=== PATIENT | male | born 1965 | race Caucasian/White ===

== ENCOUNTER 2017-04-18 03:04 | Observation (INO) ==
[2017-04-18 03:27] LABS: Bilirubin,Urine Negative (Negative); Blood,Urine Negative (Negative); Clarity,Urine Clear (Clear); Color,Urine Yellow (Yellow); Glucose,Urine (UA) Normal (Normal); Ketones,Urine Negative (Negative); Leukocyte Esterase,Urine Negative (Negative); Nitrite,Urine Negative (Negative); PH,Urine 5.5 pH Units (5.0-8.0); Protein,Urine Negative (Neg-Trace); Specific Gravity,Urine > 1.030 (1.010-1.025); Urobilinogen,Urine Normal (Normal)
[2017-04-18] MEDS ORDERED: Ondansetron ODT 4 MG TAB.RAPDIS SL ONE (04:13)
[2017-04-18] MEDS ORDERED: 0.9 % Sodium Chloride 1,000 ML IVC ONE ×2 (04:28→04:58)
[2017-04-18 04:44] LABS: Basophils # 0.1 K/mcL (0.0-0.2); Basophils % 0.4 %; Eosinophils # 0.1 K/mcL (0.0-0.6); Hematocrit 46.6 % (37.5-50.1); Hemoglobin 16.2 g/dL (12.9-16.9); Immature Granulocytes % 0.5 % (0-4); Lymphocytes # 1.8 K/mcL (0.6-4.6); Lymphocytes % 14.5 %; Mean Corpuscular HGB Conc 34.8 g/dL (31.6-35.5); Mean Corpuscular Hemoglobin 30.1 pg (28.0-33.3); Mean Corpuscular Volume 86.5 fL (83.0-100.0); Mean Platelet Volume 8.9 fL (9.4-12.4); Monocytes # 0.7 K/mcL (0.0-1.3); Monocytes % 5.6 %; Neutrophils # 9.8 K/mcL (1.6-8.9); Platelet Count 303 K/mcL (140-400); Red Blood Count 5.39 M/mcL (4.19-5.50); Red Cell Distribution Width 13.3 % (11.5-14.5)
[2017-04-18 05:00] LABS: Alanine Aminotransferase 15 Units/L (0-55); Albumin 3.8 g/dL (3.5-5.0); Albumin/Globulin Ratio 1.1 (1.1-2.2); Alkaline Phosphatase 80 Units/L (38-126); Aspartate Amino Transferase 16 Units/L (5-34); BUN/Creatinine Ratio 13 (6-26); Bilirubin,Direct 0.3 mg/dL (0.0-0.5); Bilirubin,Indirect 0.1 mg/dL (0.0-1.2); Bilirubin,Total 0.4 mg/dL (0.2-1.2); Blood Urea Nitrogen 15 mg/dL (8-26); Calcium 9.6 mg/dL (8.6-10.8); Carbon Dioxide 23 mEq/L (19-29); Chloride 105 mEq/L (98-109); Globulin 3.6 g/dL (2.4-3.5); Glucose 116 mg/dL (70-99); Lipase 39 Units/L (8-78); Osmolality,Calculated 288 (280-300); Potassium 3.2 mEq/L (3.5-4.5); Sodium 138 mEq/L (136-145); Total Protein 7.4 g/dL (6.0-8.3); eGFR For African Americans > 60 (> 60); eGFR For Non-African Americans > 60 (> 60)
--- NOTE | 2017-04-18 05:32 | Emergency Department Note ---
Disposition Clinical Impression: Pancreatitis Qualifiers: Chronicity: acute Pancreatitis type: unspecified pancreatitis type Acute pancreatitis complication: no infection or necrosis Qualified Code(s): K85.90 - Acute pancreatitis without necrosis or infection, unspecified Disposition: Admitted As Inpatient Condition: Good Time of Disposition: 07:18 Abdominal Pain HPI - General Chief Complaint: ED Abdominal Pain Stated Complaint: abdominal pain Time Seen by Provider: 04/18/17 03:45 Source: patient Mode of arrival: ambulatory Limitations: no limitations Nursing Notes Reviewed: Yes Vital Signs Reviewed: Yes - History of Present Illness HPI Narrative: 51-year-old male history of hypertension presents to the ED for abdominal pain. This is been intermittent over the past month or so. It has gradually gotten worse and became more frequent as well as changed location. States initially it was a cramping sensation located in the epigastric and left abdomen symptoms worsened with foods more particularly spicy foods. It gradually improved but then over the past week it has become more diffuse and has been more consistent over the right upper quadrant. Patient has developed some nausea with emesis after meals. He denies any fevers or chills. He does drink alcohol roughly 6 to 8 beers a week has not recently due to symptoms. History of a appendectomy. Denies any bloody stool, black tarry stools or urinary symptoms. Denies any recent travel, hospitalization or medication changes. He does not have a primary care physician established at this time. Pain Scale: 5 - Related Data Home Medications Medication Instructions Recorded Confirmed Acetaminophen [Tylenol] 1,000 mg PO Q6HR PRN 04/18/17 04/18/17 Bisacodyl [Dulcolax] 5 mg PO DAILY PRN 04/18/17 04/18/17 Lisinopril/Hydrochlorothiazide 2 tab PO DAILY 04/18/17 04/18/17 [Zestoretic 10-12.5 mg Tablet] Pantoprazole Sodium [Protonix] 40 mg PO DAILY 04/18/17 04/18/17 Allergies Allergy/AdvReac Type Severity Reaction Status Date / Time No Known Allergies Allergy Verified 04/18/17 03:08 All systems ED: reviewed and negative except as stated. Constitutional: Denies: fever, chills Cardiovascular: Denies: chest pain Respiratory: Denies: cough, dyspnea Gastrointestinal: Reports: abdominal pain, nausea, vomiting. Denies: diarrhea, melena, hematochezia Genitourinary: Denies: urgency, dysuria, frequency Musculoskeletal: Denies: back pain, neck pain Abdominal Pain PMH - Past Medical History Medical history: Reports: hypertension, kidney stones Male Surgical History: Reports: appendectomy, herniorrhaphy - Social History Smoking status: Current every day smoker Alcohol use: Reports: occasionally Drug use: Reports: marijuana Physical Exam - General Limitations: no limitations General appearance: alert, in no apparent distress - Head Head exam: atraumatic, normocephalic, normal inspection - Eye Eye exam: Present: normal appearance, PERRL, EOMI - ENT ENT exam: normal exam, normal oropharynx, mucous membranes dry (Chapped lips) - Neck Neck exam: Present: normal inspection, full ROM, trachea midline - Chest Chest inspection: Present: normal inspection, symmetric chest wall rise - Respiratory Respiratory exam: Present: normal lung sounds bilaterally - Cardiovascular Cardiovascular exam: Present: regular rate, normal rhythm, normal heart sounds - Abdominal Exam Abdominal exam: Present: soft, tenderness, normal bowel sounds, Anthony's sign, scar (Right lower quadrant). Absent: distention, guarding, rebound, rigidity, tenderness at McBurney's Point Abdominal tenderness: Present: RUQ, LUQ, epigastrium, diffuse, mild - Extremities Exam Extremities exam: Present: normal inspection, full ROM, normal capillary refill. Absent: tenderness, pedal edema, calf tenderness - Back Exam Back exam: Present: normal inspection, full ROM. Absent: tenderness, CVA tenderness (R), CVA tenderness (L) - Neurological Exam Neurological exam: Present: alert, oriented X3 - Psychiatric Psychiatric exam: Present: normal affect, normal mood - Skin Skin exam: Present: warm, dry, intact, normal color Course Course Narrative: 51-year-old male presents with abdominal pain. Intermittent over the past month. Pain is now more diffuse mostly located in the epigastric and right upper quadrant. Abdomen is otherwise soft and nondistended. Oral mucosal membranes appear dry. CT of the abdomen and pelvis reveals acute pancreatitis. Lipase however is surprisingly normal. Clinically he appears to be pancreatitis. While give him IV fluids morphine to control pain. Patient will be admitted. Review of labs or otherwise unremarkable. Impression is pancreatitis. - Reevaluation(s) Reevaluation #1: Patient's blood pressure is elevated. He typically takes his blood pressure medication in the morning. He denies any chest pain at this time. - Consultations Consultation #1: Spoke with on-call hospitalist yariel Ibarra to admit for abdominal pain and acute pancreatitis. No further orders at this time Time: 07:19 Vital Signs Temperature 97.6 F 04/18/17 03:05 Pulse Rate 91 04/18/17 03:05 Respiratory Rate 18 04/18/17 03:05 Blood Pressure 195/118 04/18/17 03:05 O2 Sat by Pulse Oximetry 96 04/18/17 03:05 Temperature 97.9 F 04/18/17 11:12 Pulse Rate 72 04/18/17 11:12 Respiratory Rate 15 04/18/17 11:12 Blood Pressure 161/84 04/18/17 11:12 O2 Sat by Pulse Oximetry 96 04/18/17 11:12 Oxygen Delivery Oxygen Delivery Room Air Abdominal Pain - Medical Records Medical records reviewed: Yes I reviewed the patient's medical records. - Lab Data Lab results reviewed: Yes I reviewed the patient's lab results. Result diagrams: 04/18/17 04:20 04/18/17 04:20 Lab Results 04/18/17 04/18/17 04/18/17 Range/Units 03:13 04:20 04:20 WBC 12.6 H (4.3-11.1) K/mcL RBC 5.39 (4.19-5.50) M/mcL Hgb 16.2 (12.9-16.9) g/dL Hct 46.6 (37.5-50.1) % MCV 86.5 (83.0-100.0) fL MCH 30.1 (28.0-33.3) pg MCHC 34.8 (31.6-35.5) g/dL RDW 13.3 (11.5-14.5) % Plt Count 303 (140-400) K/mcL MPV 8.9 L (9.4-12.4) fL Immature Gran % 0.5 (0-4) % Seg Neutrophils % 78.0 % Lymphocytes % 14.5 % Monocytes % 5.6 % Eosinophils % 1.0 % Basophils % 0.4 % Neutrophils # 9.8 H (1.6-8.9) K/mcL Lymphocytes # 1.8 (0.6-4.6) K/mcL Monocytes # 0.7 (0.0-1.3) K/mcL Eosinophils # 0.1 (0.0-0.6) K/mcL Basophils # 0.1 (0.0-0.2) K/mcL Sodium 138 (136-145) mEq/L Potassium 3.2 L (3.5-4.5) mEq/L Chloride 105 (98-109) mEq/L Carbon Dioxide 23 (19-29) mEq/L BUN 15 (8-26) mg/dL Creatinine 1.15 (0.72-1.25) mg/dL Est GFR ( Amer) > 60 (> 60) Est GFR (Non-Af Amer) > 60 (> 60) BUN/Creatinine Ratio 13 (6-26) Glucose 116 H (70-99) mg/dL Calculated Osmolality 288 (280-300) Calcium 9.6 (8.6-10.8) mg/dL Total Bilirubin 0.4 (0.2-1.2) mg/dL Direct Bilirubin 0.3 (0.0-0.5) mg/dL Indirect Bilirubin 0.1 (0.0-1.2) mg/dL AST 16 (5-34) Units/L ALT 15 (0-55) Units/L Alkaline Phosphatase 80 (38-126) Units/L Serum Total Protein 7.4 (6.0-8.3) g/dL Albumin 3.8 (3.5-5.0) g/dL Globulin 3.6 H (2.4-3.5) g/dL Albumin/Globulin Ratio 1.1 (1.1-2.2) Triglycerides 207 H (< 150) mg/dL Cholesterol 244 H (< 200) mg/dL LDL Cholesterol, Calc 160 H (0-99) mg/dL VLDL Cholesterol, Calc 41 H (< 31) mg/dL HDL Cholesterol 43 (40-59) mg/dL Cholesterol/HDL Ratio 5.7 H (0-4.9) Lipase 39 (8-78) Units/L Urine Color Yellow (Yellow) Urine Clarity Clear (Clear) Urine pH 5.5 (5.0-8.0) pH Units Ur Specific Holloway > 1.030 H (1.010-1.025) Urine Protein Negative (Neg-Trace) mg/dL Urine Glucose (UA) Normal (Normal) mg/dL Urine Ketones Negative (Negative) mg/dL Urine Blood Negative (Negative) Urine Nitrite Negative (Negative) Urine Bilirubin Negative (Negative) Urine Urobilinogen Normal (Normal) mg/dL Ur Leukocyte Esterase Negative (Negative) - Radiology Data Radiology results reviewed: Yes I reviewed the patient's radiology results. Abdomen/Pelvis CT 04/18/17 04:14 IMPRESSION: Acute pancreatitis. D/ / Leon Carlos MD / Leon Carlos MD Interpreting Provider: Leon Carlos MD Attestation Statement - Attestation Attestation: I personally interviewed and examined this patient and my medical decision- making was reviewed with the ED Resident Physician, Dr. Reza I agree with the documented findings, disposition and treatment plan as described except to the extent set forth below. Pt is a 51 yo wm, hx HTN, who presents with grad worsening one month hx of intermittent upper abd pain. Pt c/o incr pain over past 5 days with pain mostly epigastric in nature, nonrad, and with N/V. Pt with ETOH use, but none in past week due to abd pain. No CP/press, no SOB, no diaphoresis, no other assocd sxs. Agree with PE findigns as documented. Pt cont monitored, with improvement in BP with pain control. Pt receiving IVF's , and labs wnl. CT shows evidence of acute pancreatitis, with normal lipase?? Clinically sxs appear c/w pancreatitis. Will continue IVF, pain control and admit for further eval/mgmt. VSS.
[2017-04-18] MEDS ORDERED: *HR* Morphine 2 MG/ML SYRINGE IVP ONE (05:40)
[2017-04-18] MEDS ORDERED: Ondansetron 4 MG/2 ML VIAL IVP ONE (05:40)
[2017-04-18] MEDS ORDERED: Ondansetron 4 MG/2 ML VIAL IVP PRN (09:38)
[2017-04-18] MEDS ORDERED: *HR* Morphine 2 MG/ML SYRINGE IVP PRN (09:38)
[2017-04-18] MEDS ORDERED: Naloxone 0.4 MG/ML INJ IVP PRN (09:38)
[2017-04-18] MEDS ORDERED: Nicotine 21 MG PATCH.TD24 TD SCH (09:45)
[2017-04-18 10:15] LABS: Chol/HDL Ratio 5.7 (0-4.9); Cholesterol 244 mg/dL (< 200); HDL Cholesterol 43 mg/dL (40-59); LDL Cholesterol,Calculated 160 mg/dL (0-99); Triglycerides 207 mg/dL (< 150)
[2017-04-18] MEDS: D5% in 0.45% NACL 1,000 ML IVC SCH (10:16)
--- NOTE | 2017-04-18 11:06 | Internal Med History&Physical ---
Date of Encounter: 04/18/17 Time of Encounter: 09:30 Assessment and Plan (1) Pancreatitis Current visit: Yes Status: Acute CT abdomen/pelvis done in the emergency room shows changes suggestive of acute pancreatitis. Given his 2 month history of ongoing abdominal pain, will get right upper quadrant ultrasound to rule out gallstone issues. Check lipid profile. Keep nothing by mouth for now. IV PPI. Start IV hydration, pain control with when necessary IV morphine and supportive care with when necessary antiemetics. Alcohol abstinence discussed. Qualifiers: Chronicity: acute Pancreatitis type: unspecified pancreatitis type Acute pancreatitis complication: no infection or necrosis Qualified Code(s): K85.90 - Acute pancreatitis without necrosis or infection, unspecified (2) Essential hypertension Current visit: Yes Status: Chronic Blood pressure noted to be high at triage, likely worsened by pain. Continue lisinopril and monitor blood pressure closely. (3) Tobacco abuse Current visit: Yes Status: Chronic Patient requests for nicotine transdermal patch, not motivated to quit smoking at this time. Internal Medicine - H&P: HPI Chief complaint: Abdominal pain Admitted From: Emergency Dept Plans for Post Hospital Care: Home History of present illness: Mr. Santo is a 51 year old male with history of hypertension presents with complaints of abdominal pain, going on for the last 2 months. Patient describes a dull aching mild to moderate intensity abdominal pain, that is usually diffuse and sometimes specifically epigastric, radiating to left upper quadrant. Pain is associated with nausea, nonbloody and bilious vomiting, no diarrhea, fever/chills. Pain is aggravated with certain kinds of foods like spicy and greasy foods. He reports no known h/o- gallstones. He does drink alcohol, about 6-8 beers per week. Last drink was about a week ago. Past Med Surg Social Fam HX - Past Medical History Medical history: hypertension, kidney stones Psychiatric history: anxiety, depression - Past Surgical History Surgical History: appendectomy, herniorrhaphy - Social History Smoking Status: Current every day smoker Packs per day: 1 Smokeless Tobacco Status: Yes (occasionally) Alcohol use: occasionally Drug use: marijuana Current living situation: Home, With Family Activity Level: Independent ambulation Recent Out of Country Travel Within the Last 8 Weeks: No - Family History Mother Living Status: Age at : 69 Cause of : pneumonia Hx Family Cardiac Disorders: Yes (htn) Hx Family Medical Disorders: Yes (morbid obesity, reumatic fever) Father Living Status: Age at : 64 Cause of : diabetes complications Hx Family Cardiac Disorders: Yes (MIs, CHF) Hx Family Endocrine Disorder: Yes (dm) Hx Family Neurologic Disorders: Yes (stroke) Internal Medicine - H&P: Meds Acetaminophen [Tylenol] 1,000 mg PO Q6HR PRN 04/18/17 [History] Bisacodyl [Dulcolax] 5 mg PO DAILY PRN 04/18/17 [History] Lisinopril/Hydrochlorothiazide [Zestoretic 10-12.5 mg Tablet] 2 tab PO DAILY 08/25 [History] Pantoprazole Sodium [Protonix] 40 mg PO DAILY 04/18/17 [History] Allergies No Known Allergies Allergy (Verified 04/18/17 03:08) All Systems PM: A 10-system review of systems was performed and is negative for pertinent findings except as documented above in the HPI. - Constitutional Constitutional: no chills, no fever(s), no night sweats - EENT Eyes: no change in vision, no discharge, no pain, no photophobia Ears: no ear discharge, no ear pain, no tinnitus Nose, mouth and throat: no dysphagia, no nasal discharge, no neck pain, no sore throat - Cardiovascular Cardiovascular ROS IM: no chest pain, no diaphoresis, no dyspnea, no lightheadedness, no palpitations, no syncope - Respiratory Respiratory: no cough, no dyspnea, no wheezing, no excessive phlegm production - Gastrointestinal Gastrointestinal: abdominal pain, nausea, vomiting - Musculoskeletal Musculoskeletal ROS IM: no numbness, no tingling - Integumentary Integumentary IM: no rash, no unusual bruising - Neurological Neurological ROS: no confusion, no convulsions, no focal weakness, no numbness, no tingling, no tremor(s) - Hematologic/Lymphatic Hematologic/Lymphatic: no easy bruising - Constitutional Vitals: Temp Pulse Resp BP Pulse Ox 97.6 F 48 16 156/78 94 04/18/17 07:51 04/18/17 07:51 04/18/17 07:51 04/18/17 07:51 04/18/17 09:15 General appearance: Present: A&O X 3, answers questions appropriately - Respiratory Respiratory exam: Present: CTAB. Absent: accessory muscle use, rales, rhonchi, wheezes - Cardiovascular Cardiovascular exam: Present: RRR, +S1, +S2. Absent: diastolic murmur, gallop, rubs, systolic murmur - GI/Abdominal GI/Abdominal exam: Present: normal bowel sounds, soft (mild tenderness in epigastrium/LUQ), no peritoneal signs. Absent: distended, tenderness - Extremities Exam Extremities exam: Present: full ROM, warm, radial pulses palpable and symetrical. Absent: calf tenderness, cyanotic, pedal edema - Neurological Exam Neurological exam: Present: CN II-XII intact, oriented X3, no focal deficits. Absent: pronater drift, facial droop, speech deficit - Skin Skin exam: Present: dry, intact Internal Med - H&P Results - Labs CBC & Chem 7: 04/18/17 04:20 04/18/17 04:20
[2017-04-18] MEDS: *HR* Heparin 5,000 UNIT/ML VIAL SQ SCH (18:05)
[2017-04-18] MEDS: Acetaminophen 325 MG TABLET PO PRN (20:58)
[2017-04-19] MEDS: D5% in 0.45% NACL 1,000 ML IVC SCH (01:31)
[2017-04-19 03:31] VITALS: BP 132/74
[2017-04-19 04:52] LABS: Basophils # 0.1 K/mcL (0.0-0.2); Basophils % 0.9 %; Eosinophils # 0.2 K/mcL (0.0-0.6); Eosinophils % 2.6 %; Hematocrit 43.2 % (37.5-50.1); Immature Granulocytes % 0.3 % (0-4); Lymphocytes # 2.1 K/mcL (0.6-4.6); Lymphocytes % 29.3 %; Mean Corpuscular HGB Conc 33.8 g/dL (31.6-35.5); Mean Corpuscular Hemoglobin 29.6 pg (28.0-33.3); Mean Corpuscular Volume 87.4 fL (83.0-100.0); Mean Platelet Volume 9.1 fL (9.4-12.4); Monocytes # 0.4 K/mcL (0.0-1.3); Monocytes % 5.1 %; Neutrophils # 4.3 K/mcL (1.6-8.9); Platelet Count 261 K/mcL (140-400); Red Blood Count 4.94 M/mcL (4.19-5.50); Red Cell Distribution Width 13.2 % (11.5-14.5); Segmented Neutrophils % 61.8 %
[2017-04-19 04:59] LABS: Hemoglobin 14.6 g/dL (12.9-16.9)
[2017-04-19 05:09] LABS: Alanine Aminotransferase 13 Units/L (0-55); Albumin 3.1 g/dL (3.5-5.0); Alkaline Phosphatase 73 Units/L (38-126); Aspartate Amino Transferase 13 Units/L (5-34); BUN/Creatinine Ratio 7 (6-26); Bilirubin,Total 0.6 mg/dL (0.2-1.2); Blood Urea Nitrogen 7 mg/dL (8-26); Calcium 9.1 mg/dL (8.6-10.8); Carbon Dioxide 27 mEq/L (19-29); Chloride 107 mEq/L (98-109); Globulin 3.2 g/dL (2.4-3.5); Glucose 107 mg/dL (70-99); Osmolality,Calculated 286 (280-300); Potassium 3.5 mEq/L (3.5-4.5); Sodium 139 mEq/L (136-145); Total Protein 6.3 g/dL (6.0-8.3); eGFR For African Americans > 60 (> 60); eGFR For Non-African Americans > 60 (> 60)
[2017-04-19] MEDS: *HR* Heparin 5,000 UNIT/ML VIAL SQ SCH (05:52)
[2017-04-19] MEDS: Acetaminophen 325 MG TABLET PO PRN (06:48)
--- NOTE | 2017-04-19 08:18 | Discharge Summary ---
Date of Encounter: 04/19/17 Time of Encounter: 08:15 - Discharge Diagnosis (1) Pancreatitis Priority: Primary Status: Acute Comments: Acute pancreatitis, unclear etiology Qualifiers: Chronicity: acute Pancreatitis type: unspecified pancreatitis type Acute pancreatitis complication: no infection or necrosis Qualified Code(s): K85.90 - Acute pancreatitis without necrosis or infection, unspecified (2) Hypokalemia Priority: Secondary Status: Acute (3) Essential hypertension Priority: Secondary Status: Chronic (4) Tobacco abuse Priority: Secondary Status: Chronic (5) Leukocytosis Priority: Secondary Status: Acute Qualifiers: Leukocytosis type: unspecified Qualified Code(s): D72.829 - Elevated white blood cell count, unspecified - Discharge Medications Prescriptions: amLODIPine [Norvasc] 5 mg PO DAILY #30 tablet Losartan [Cozaar] 25 mg PO DAILY #30 tablet Home Medications: Acetaminophen [Tylenol] 1,000 mg PO Q6HR PRN 04/18/17 [History] Bisacodyl [Dulcolax] 5 mg PO DAILY PRN 04/18/17 [History] Pantoprazole Sodium [Protonix] 40 mg PO DAILY 04/18/17 [History] Losartan [Cozaar] 25 mg PO DAILY #30 tablet 04/19/17 [Rx] amLODIPine [Norvasc] 5 mg PO DAILY #30 tablet 04/19/17 [Rx] Allergies/Adverse Reactions: Allergies No Known Allergies Allergy (Verified 04/18/17 03:08) Procedures/tests Complete & Pending: Procedures Performed prior 72 hours Category Date Time Status US abdomen limited [US] Stat Exams 04/18/17 13:00 Completed Date of admission: 04/18/17 06:57 Primary care physician: PCP NO Consults: 04/18/17 09:13 Consult to Nutrition [CONS] Routine Comment: pt scored a 3, reports a 20lb weight loss recently Consulting Provider: NUTRITION Reason for Dietary Consult: MST Score - Patient Status Disposition: Home, Self-Care Condition: Good Overall status at discharge: patient is back to baseline - Discharge Instructions Instructions: Pancreatitis (DC) Follow Up With: Emeka Ponce MD [Non-Partnered Physician] - 05/23/17 1:30 pm (Please bring a photo ID, insurance card and a list of any medications you are on. If you need to cancel please give a 24 hour notice. Thank you) Additional Instructions: Follow-up with the primary care physician within the next 7 days. Quit smoking , quit drinking alcohol. Stop lisinopril and hydrochlorothiazide, start losartan and amlodipine (prescription sent to [facility] in [place]). Low fat and low lactose diet. Discusse with primary care physician the possibility of having an MRI if the symptoms do not improve after stopping alcohol, lisinopril and hydrochlorothiazide. - Diet and Activity Activity: increase activity as tolerated Diet: low fat, low cholesterol Hospital course: Mr. Santo is a 51 year old male with history of hypertension and nephrolithiasis presented with complaints of abdominal pain, going on for the last 2 months ( started on and off 18 months ago). Patient describes a dull aching mild to moderate intensity abdominal pain, that is usually diffuse and sometimes specifically epigastric, radiating to left upper quadrant. Pain is associated with nausea, nonbloody and bilious vomiting, no diarrhea, fever/ chills. Pain is aggravated with certain kinds of foods like spicy and greasy foods. He reports no known h/o- gallstones. He does drink alcohol, about 6-8 beers per week. Last drink was about a week ago. The patient denies drinking lately, the CT scan of the abdomen showed acute pancreatitis. His lipase was 39 only. Patient says is still complaining of epigastric tenderness. An ultrasound of the abdomen did not show any gallstones or other abnormalities. He says he does not think alcohol has been the culprit of his pain, but he does not drink that often. Due to his normal lipase the patient was recommended to have an MRI to rule out the possibility of a mass. Patient prefers to be discharged at this point and have it done if the pain does not get better after stop drinking and after stopping lisinopril and hydrochlorothiazide which can rarely cause pancreatitis. He prefers to be sent on a different type of medication for blood pressure and will be sent on losartan and amlodipine. He was advised to stay another day if the pain was not properly controlled. He will be discharged after breakfast. He understands the risk of not having proper testing, but he is worried about not having insurance and prefers to leave at the moment. Earlier today he threatened to leave AGAINST MEDICAL ADVICE. Time spent discussing smoking cessation with patient: 3 to 10 minutes - Time Spent with Patient Total time spent providing and/or coordinating discharge services: Greater than 30 minutes (40 min) - Constitutional Vitals: Temp Pulse Resp BP Pulse Ox 97.7 F 53 15 132/74 94 04/19/17 03:27 04/19/17 03:27 04/19/17 03:27 04/19/17 03:27 04/19/17 03:27 General appearance: Present: A&O X 3, answers questions appropriately - Head Head exam: Present: atraumatic, normocephalic - Eye Eye exam: Present: PERRL, conjuntiva pink, sclera anicteric Pupils: Present: PERRL - Neck Neck exam general surgery: Present: supple, trachea midline. Absent: lymphadenopathy - Respiratory Respiratory exam: Present: CTAB. Absent: accessory muscle use, rales, rhonchi, wheezes - Cardiovascular Cardiovascular exam: Present: RRR, +S1, +S2. Absent: diastolic murmur, gallop, rubs, systolic murmur - GI/Abdominal GI/Abdominal exam: Present: normal bowel sounds, soft, tenderness (Mild epigastric tenderness), no peritoneal signs. Absent: distended - Extremities Exam Extremities exam: Present: warm, radial pulses palpable and symetrical. Absent : calf tenderness, cyanotic, pedal edema - Neurological Exam Neurological exam: Present: CN II-XII intact, oriented X3, no focal deficits. Absent: pronater drift, facial droop, speech deficit - Skin Skin exam: Present: dry, intact
[2017-04-19] MEDS ORDERED: Pantoprazole 40 MG VIAL IVP SCH (09:00)
== END 2017-04-19 08:56 | disposition home or self-care (01) ==
LOC: 3ANU 03:04 → EMEROO 03:04 → SUATTDRO 06:57 → 3ANU 07:33
PROVIDERS: ADMIT Internal Medicine; ATTEND Internal Medicine

== ENCOUNTER 2018-12-25 02:18 | Inpatient (IN) ==
--- NOTE | 2018-12-25 04:28 | Emergency Department Note ---
Disposition Clinical Impression: Elevated troponin, Hypoxia, Pneumonitis, NSTEMI (non-ST elevated myocardial infarction) Disposition: Admitted As Inpatient Condition: Good Time of Disposition: 06:12 SOB HPI - General Chief Complaint: ED Shortness of Breath/Dyspnea Stated Complaint: Cant breath. Time Seen by Provider: 12/25/18 04:10 Source: patient Limitations: no limitations Nursing Notes Reviewed: Yes Vital Signs Reviewed: Yes - History of Present Illness 53-year-old male with history of tobacco abuse, hypertension and hyperlipidemia presents emergency department was shortness of breath. States he can breathe today. This occurred suddenly. He states over the past month he has been very stressed and anxious as his current job is being eliminated. He denied any chest pain during this time. Denies any recent illness cough or congestion. He smokes in denies a history of asthma or COPD. Denies history of blood clots, long-distance travel, hospitalization. 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 States his feels significantly better when he was evaluated 2 hours into his weight. He has found to be tachycardic which has improved down to 99 with oxygen saturation 92%. Pt Subjective Complaint: shortness of breath - Related Data Home Medications Medication Instructions Recorded Confirmed RX: No Known Home Drugs 12/25/18 12/25/18 Allergies Allergy/AdvReac Type Severity Reaction Status Date / Time No Known Allergies Allergy Verified 12/25/18 19:09 All systems ED: reviewed and negative except as stated. Review of Systems: As Per HPI Constitutional: Denies: fever, chills ENT ED: Denies: congestion Cardiovascular: Denies: chest pain Respiratory: Reports: dyspnea. Denies: cough, wheezes, hemoptysis Gastrointestinal: Denies: abdominal pain, nausea, vomiting Musculoskeletal: Denies: back pain Integumentary: Denies: rash Neurological: Denies: headache Psychiatric: Reports: anxiety. Denies: depression, suicidal thoughts, homicidal thoughts Past Medical History - Past Medical History Attestation: Yes The following information was validated with the patient. Source: patient Medical history: Reports: cancer, hypertension, kidney stones Surgical history: Reports: appendectomy, herniorrhaphy Psychiatric history: Reports: anxiety, depression - Social History Smoking Status: Current every day smoker Smokeless Tobacco Status: Yes (occasionally) Alcohol use: Reports: occasionally Drug use: Reports: marijuana Physical Exam - General Limitations: no limitations General appearance: alert, anxious - Head Head exam: atraumatic, normocephalic, normal inspection - Eye Eye exam: Present: normal appearance, PERRL, EOMI - ENT ENT exam: normal exam, normal oropharynx, mucous membranes moist - Neck Neck exam: Present: normal inspection, full ROM, trachea midline - Chest Chest inspection: Present: normal inspection, symmetric chest wall rise - Respiratory Respiratory exam: Present: normal lung sounds bilaterally. Absent: respiratory distress, wheezes, prolonged expiratory phase - Cardiovascular Cardiovascular exam: Present: normal rhythm, tachycardia, normal heart sounds. Absent: systolic murmur, diastolic murmur - Expanded Cardiovascular Exam Peripheral pulses: 2+: radial (R), radial (L) - Abdominal Exam Abdominal exam: Present: soft, Non-Tender, normal bowel sounds. Absent: tenderness, distention, guarding, rebound, rigidity - Extremities Exam Extremities exam: Present: normal inspection, full ROM, normal capillary refill. Absent: tenderness, pedal edema, calf tenderness - Neurological Exam Neurological exam: Present: alert, oriented X3 - Psychiatric Psychiatric exam: Present: anxious. Absent: depressed - Skin Skin exam: Present: warm, dry, intact, normal color. Absent: rash, cyanosis, diaphoresis Course Course Narrative: Will evaluate for possible ACS. Given the persistent tachycardia and 92% on room air without any wheezing and clear lungs auscultation will check a D dimer. Reports a history of skin cancer with removal. - Reevaluation(s) Reevaluation #1: D dimer is elevated over 1000. He continues to be mildly tachycardic and 92% on room air. Critical lab values troponin 0.07. He denies any chest pain. His BNP is over 700. He has a mild leukocytosis. Chest x-ray with concerns for possible pneumonia. CT scan to evaluate PE pending to evaluate for possible pulmonary embolism into better evaluate infiltrate. Time: 05:15 Reevaluation #2: CT scan of the chest did not reveal pulmonary embolism. There is calcification to the coronary arteries was incidentally found. There is evidence of some pneumonitis in the bases versus bilateral pleural effusion. Given the elevated troponin patient will require admission. Patient denies G.I. bleed symptoms. Patient will be initiated on heparin. Time: 06:05 - Consultations Consultation #1: Spoke with on-call hospitalist yariel Pino to admit for NSTEMI, elevated trop, pneumonitis. No further orders at this time Time: 07:08 Vital Signs Temperature 98.0 F 12/25/18 02:26 Pulse Rate 123 12/25/18 02:26 Respiratory Rate 24 12/25/18 02:26 Blood Pressure 192/124 12/25/18 02:26 O2 Sat by Pulse Oximetry 93 12/25/18 02:26 Temperature 98.0 F 12/25/18 02:26 Pulse Rate 102 12/25/18 06:35 Respiratory Rate 14 12/25/18 06:35 Blood Pressure 157/100 12/25/18 06:35 O2 Sat by Pulse Oximetry 94 12/25/18 06:35 Oxygen Delivery Oxygen Delivery Room Air Shortness of Breath/Dyspnea - MDM Narrative Medical decision making narrative: Patient was discussed with my attending physician who agrees with ED management and final disposition. They independently evaluated the patient. Please refer to their attestation to this encounter for additional information. This note was generated by [email or web address] voice recognition software and as a result g rammatical or spelling errors may occur using this program. - Medical Records Medical records reviewed: Yes I reviewed the patient's medical records. - Lab Data Lab results reviewed: Yes I reviewed the patient's lab results. Result diagrams: 12/26/18 01:53 12/26/18 01:53 Lab Results 12/25/18 12/25/18 12/25/18 Range/Units 04:23 04:23 04:23 WBC 14.2 H (4.3-11.1) K/mcL RBC 5.78 H (4.19-5.50) M/mcL Hgb 17.9 H (12.9-16.9) g/dL Hct 51.5 H (37.5-50.1) % MCV 89.1 (83.0-100.0) fL MCH 31.0 (28.0-33.3) pg MCHC 34.8 (31.6-35.5) g/dL RDW 13.1 (11.5-14.5) % Plt Count 252 (140-400) K/mcL MPV 9.9 (9.4-12.4) fL Immature Gran % 0.5 (0-4) % Seg Neutrophils % 87.1 % Lymphocytes % 7.5 % Monocytes % 4.3 % Eosinophils % 0.2 % Basophils % 0.4 % Neutrophils # 12.4 H (1.6-8.9) K/mcL Lymphocytes # 1.1 (0.6-4.6) K/mcL Monocytes # 0.6 (0.0-1.3) K/mcL Eosinophils # 0.0 (0.0-0.6) K/mcL Basophils # 0.1 (0.0-0.2) K/mcL D-Dimer (0-500) ng/mLFEU Sodium 138 (136-145) mEq/L Potassium 3.5 (3.5-5.1) mEq/L Chloride 108 H (98-107) mEq/L Carbon Dioxide 21 L (23-29) mEq/L BUN 13 (6-20) mg/dL Creatinine 0.97 (0.70-1.30) mg/dL Est GFR ( Amer) > 60 (> 60) Est GFR (Non-Af Amer) > 60 (> 60) BUN/Creatinine Ratio 13 (6-26) Glucose 139 H (70-105) mg/dL Calculated Osmolality 288 (280-300) Calcium 9.3 (8.6-10.3) mg/dL Troponin I 0.07 H* (< 0.04) ng/mL B-Natriuretic Peptide 714 H (Less than 100) pg/mL 12/25/18 Range/Units 04:23 WBC (4.3-11.1) K/mcL RBC (4.19-5.50) M/mcL Hgb (12.9-16.9) g/dL Hct (37.5-50.1) % MCV (83.0-100.0) fL MCH (28.0-33.3) pg MCHC (31.6-35.5) g/dL RDW (11.5-14.5) % Plt Count (140-400) K/mcL MPV (9.4-12.4) fL Immature Gran % (0-4) % Seg Neutrophils % % Lymphocytes % % Monocytes % % Eosinophils % % Basophils % % Neutrophils # (1.6-8.9) K/mcL Lymphocytes # (0.6-4.6) K/mcL Monocytes # (0.0-1.3) K/mcL Eosinophils # (0.0-0.6) K/mcL Basophils # (0.0-0.2) K/mcL D-Dimer 1039 H (0-500) ng/mLFEU Sodium (136-145) mEq/L Potassium (3.5-5.1) mEq/L Chloride (98-107) mEq/L Carbon Dioxide (23-29) mEq/L BUN (6-20) mg/dL Creatinine (0.70-1.30) mg/dL Est GFR ( Amer) (> 60) Est GFR (Non-Af Amer) (> 60) BUN/Creatinine Ratio (6-26) Glucose (70-105) mg/dL Calculated Osmolality (280-300) Calcium (8.6-10.3) mg/dL Troponin I (< 0.04) ng/mL B-Natriuretic Peptide (Less than 100) pg/mL - Radiology Data Radiology results reviewed: Yes I reviewed the patient's radiology results. Chest X-Ray 12/25/18 02:35 IMPRESSION: Mild streaky opacities in the lung bases. Infection versus atelectasis. D/ / Nette Berrios MD / Nette Berrios MD Interpreting Provider: Nette Berrios MD Chest CTA 12/25/18 04:58 IMPRESSION: No pulmonary embolism. Emphysema. Calcific atherosclerosis aorta and coronary arteries. Small volume bilateral pleural effusion with minimal posterior bibasilar atelectasis. Focal pneumonitis is a consideration posterior both lung bases D/ / Nura Jaffe / Nura Jaffe Interpreting Provider: Nura Jaffe - EKG Data EKG attestation: Yes I reviewed and interpreted this EKG. EKG results narrative: EKG performed 0314 sinus tachycardia 104 beats per minute, normal axis, good R wave progression, no ST elevation or depression, LVH, intervals within normal limits. Compared to prior EKG performed 09/10/2014 with similar consistent findings are no acute ischemic changes. Attestation Statement - Attestation Attestation: Resident Attestation: I examined this patient and my medical decision making was reviewed with the Resident Physician. I agree with the documented findings, disposition and treatment plan as described except to the extent set forth below. We independently had [id number] contact with the patient. Patient presenting to the emergency department for evaluation of shortness of breath. Patient was found to be hypoxic. Overall shortness of breath is been going on for the last month. Initially noticed a work with exertional dyspnea. Overall symptoms have gotten to the point that even mild exertion causes significant dyspnea. The patient did undergo evaluation for other underlying causes. CT of the chest performed was found to be negative. Patient did have an elevated troponin as well as BNP. Given the patient's exertional dyspnea with associated elevation of his BNP and no underlying PE or other etiology. Concerning for ACS or ACS equivalent. Patient is resting in bed comfortable with this time, no acute distress, regular rhythm, clear to auscultation bilaterally, no significant peripheral edema. Patient was initiated on heparin drip. Patient be admitted for further evaluation.
[2018-12-25 04:35] LABS: Basophils # 0.1 K/mcL (0.0-0.2); Basophils % 0.4 %; Eosinophils % 0.2 %; Hematocrit 51.5 % (37.5-50.1); Hemoglobin 17.9 g/dL (12.9-16.9); Immature Granulocytes % 0.5 % (0-4); Lymphocytes # 1.1 K/mcL (0.6-4.6); Lymphocytes % 7.5 %; Mean Corpuscular HGB Conc 34.8 g/dL (31.6-35.5); Mean Corpuscular Volume 89.1 fL (83.0-100.0); Mean Platelet Volume 9.9 fL (9.4-12.4); Monocytes # 0.6 K/mcL (0.0-1.3); Monocytes % 4.3 %; Neutrophils # 12.4 K/mcL (1.6-8.9); Platelet Count 252 K/mcL (140-400); Red Blood Count 5.78 M/mcL (4.19-5.50); Red Cell Distribution Width 13.1 % (11.5-14.5); Segmented Neutrophils % 87.1 %
[2018-12-25 04:56] LABS: BUN/Creatinine Ratio 13 (6-26); Blood Urea Nitrogen 13 mg/dL (6-20); Calcium 9.3 mg/dL (8.6-10.3); Carbon Dioxide 21 mEq/L (23-29); Chloride 108 mEq/L (98-107); Glucose 139 mg/dL (70-105); Osmolality,Calculated 288 (280-300); Potassium 3.5 mEq/L (3.5-5.1); Sodium 138 mEq/L (136-145); eGFR For Non-African Americans > 60 (> 60)
[2018-12-25] MEDS ORDERED: Isovue-370 500 ML BOTTLE IVP ONE (04:58)
[2018-12-25 05:13] LABS: Troponin I 0.07 ng/mL (< 0.04)
[2018-12-25] MEDS ORDERED: Aspirin 325 MG TABLET PO ONE (05:49)
[2018-12-25] MEDS ORDERED: *HR* Heparin 5,000 UNIT/ML VIAL IVP PRN ×2 (06:37)
[2018-12-25] MEDS ORDERED: *HR* Heparin 5,000 UNIT/ML VIAL IVP ONE (06:37)
[2018-12-25] MEDS: Heparin 25,000 UNIT/250 ML D5W 25,000 UNIT/250 ML IV.SOLN IVC SCH (07:35)
[2018-12-25] MEDS ORDERED: Acetaminophen 325 MG TABLET PO PRN (08:39)
--- NOTE | 2018-12-25 08:42 | Internal Med History&Physical ---
Date of Encounter: 12/25/18 Time of Encounter: 08:41 Internal Medicine - H&P: HPI Chief complaint: Shortness of breath Admitted From: Emergency Dept History of present illness: Boyd Santo is a 53 M w hx HTN, smoking, anxiety, who p/w SOB. Symptoms began acute this morning when he woke up out of sleep, felt panicky with tachycardia and gasping for air which improved with getting up and walking outside into the cool air. No chest pain or tightness. Says that while this was the worst episode, he's actually had several over the last 6 weeks, and has been noticing slowly progressive exertional dyspnea with any strenuous activity at work. Recently, even minor activities have tired him out. During these times, he notices that his heart feels like it's racing twice as fast as usual, although it typically returns to normal after a few minutes. Does mention feeling palpitations continuously for 4 hours once last week, though. He denies any leg swelling or difficulty lying flat. Does smoke 1ppd as well as smokes THC but has had to decrease each lately due to SOB. In the ED, pt tachycardic, tachypneic, and O2 sats low 90s on room air. D-dimer elevated so pt sent for CTPE which was negative for PE, but does show bibasilar effusions. BNP 700, trop 0.07. ECG without any abn or changes from baseline. Started on heparin gtt and admitted for further eval. Past medical, surgical, social, and family histories reviewed and updated as abril heard. Past Med Surg Social Fam HX - Past Medical History Medical history: cancer, hypertension, kidney stones Additional medical history: skin cancer Psychiatric history: anxiety, depression - Past Surgical History Surgical History: appendectomy, herniorrhaphy - Social History Smoking Status: Current every day smoker Smokeless Tobacco Status: Yes (occasionally) Alcohol use: occasionally Drug use: marijuana - Family History Mother Living Status: Hx Family Cardiac Disorders: Yes (htn) Father Living Status: Hx Family Cardiac Disorders: Yes (MIs, CHF) Hx Family Endocrine Disorder: Yes (dm) Hx Family Neurologic Disorders: Yes (stroke) Internal Medicine - H&P: Meds Losartan [Cozaar] 25 mg PO DAILY #30 tablet 04/19/17 [Rx] amLODIPine [Norvasc] 5 mg PO DAILY #30 tablet 04/19/17 [Rx] Allergy/AdvReac Type Severity Reaction Status Date / Time No Known Allergies Allergy Verified 04/18/17 03:08 All Systems PM: A 10-system review of systems was performed and is negative for pertinent findings except as documented above in the HPI. - Constitutional Vitals: Temp Pulse Resp BP Pulse Ox 98.0 F 100 20 142/105 94 12/25/18 02:26 12/25/18 07:33 12/25/18 08:34 12/25/18 08:34 12/25/18 07:33 Exam: General: NAD, good eye contact, well appearing Head: Atraumatic, normocephalic. Face symmetric Eyes: EOMI, sclerae anicteric ENT: Mucous membranes moist. Normal oral mucosa and dentition. Trachea midline. Thoracic: No visible chest wall deformities. Diffuse expiratory wheezing, mild blunting at bases but no crackles Cardio: Normal S1 and S2, regular rate and rhythm, no murmurs. Abdomen: Soft, nontender, nondistended. Extremities: Warm, well perfused. DP pulses 2+ b/l. No clubbing, cyanosis. No edema Skin: Intact. No rashes, bruises, or ulcers Neuro: Awake, fully oriented. Good memory, concentration, attention. Speech fluent. Internal Med - H&P Results - Labs CBC & Chem 7: 12/25/18 04:23 12/25/18 04:23 Labs: Short CBC 12/25/18 Range/Units 04:23 WBC 14.2 H (4.3-11.1) K/mcL Hgb 17.9 H (12.9-16.9) g/dL Hct 51.5 H (37.5-50.1) % Plt Count 252 (140-400) K/mcL Neutrophils # 12.4 H (1.6-8.9) K/mcL BMP 12/25/18 04:23 Sodium 138 Potassium 3.5 Chloride 108 H Carbon Dioxide 21 L BUN 13 Creatinine 0.97 Glucose 139 H Calcium 9.3 Cardiac Enzymes 12/25/18 Range/Units 04:23 Troponin I 0.07 H* (< 0.04) ng/mL - Impressions ITS Impressions Chest X-Ray 12/25/18 02:35 IMPRESSION: Mild streaky opacities in the lung bases. Infection versus atelectasis. D/ / Nette Berrios MD / Nette Berrios MD Interpreting Provider: Nette Berrios MD Chest CTA 12/25/18 04:58 IMPRESSION: No pulmonary embolism. Emphysema. Calcific atherosclerosis aorta and coronary arteries. Small volume bilateral pleural effusion with minimal posterior bibasilar atelectasis. Focal pneumonitis is a consideration posterior both lung bases D/ / Nura Jaffe / Nura Jaffe Interpreting Provider: Nura Jaffe - Summary of Assessment and Plan Summary of Assessment and Plan: Boyd Santo is a 53 M w hx HTN, smoking, anxiety, who p/w episode of SOB and palpitations, D-dimer 1000, BNP 700, and trop 0.07, normal ECG, subsequent CT negative for PE but does show bibasilar pleural effusions, admitted by ED for NSTEMI on heparin gtt. On exam, has wheezing and symptoms actually progressive over 4-6 weeks. No edema but I suspect new/underlying COPD and very possibly CHF or SAAD at night which caused patient to get SOB, and that he had a panic/anxiety attack today when he started to feel more SOB. Has had these sensations several times over last 4-6 weeks. Shortness of breath: suspect new dx COPD based on smoking hx and obvious wheezing on exam, although does also have bibasilar pleural effusions and elevated BNP 700 concerning for possible CHF despite no pedal edema - duonebs q6h&prn - needs outpatient PFTs - TTE Elevated troponin: normal ECG, trops mildly elevated - trend trops - tele - TTE - consider stress test and cardio consultation pending results Smoker: advised cessation - nicotine patch prn HTN: home losartan 25 and amlodipine 5 Anxiety: vistaril prn, and f/u PCP PPx: lovenox FEN: regular, no MIVF Lines: PIV Consults: Code: Full Dispo: obs for shortness of breath eval, will be homegoing
--- NOTE | 2018-12-25 10:16 | Electrocardiograph Report ---
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
[2018-12-25] MEDS: Nicotine 21 MG PATCH.TD24 TD SCH (11:33)
[2018-12-25] MEDS ORDERED: Perflutren Lipid Microsphere 1.3 ML in 0.9 % Sodium Chloride 8.7 ML IVP ONE (14:33)
[2018-12-25] MEDS ORDERED: *HR* Enoxaparin 40 MG/0.4 ML SYRINGE SQ SCH (16:00)
[2018-12-25] MEDS: Ipratropium/Albuterol Neb 3 ML IH SCH ×2 (16:18→21:33)
[2018-12-25] MEDS: hydrOXYzine pamoate 25 MG CAPSULE PO PRN (20:45)
[2018-12-26 02:20] LABS: Hematocrit 49.8 % (37.5-50.1); Hemoglobin 17.2 g/dL (12.9-16.9); Mean Corpuscular HGB Conc 34.5 g/dL (31.6-35.5); Mean Corpuscular Hemoglobin 30.9 pg (28.0-33.3); Mean Corpuscular Volume 89.4 fL (83.0-100.0); Mean Platelet Volume 11.1 fL (9.4-12.4); Platelet Count 183 K/mcL (140-400); Red Blood Count 5.57 M/mcL (4.19-5.50); Red Cell Distribution Width 13.2 % (11.5-14.5)
[2018-12-26 02:38] LABS: BUN/Creatinine Ratio 12 (6-26); Blood Urea Nitrogen 13 mg/dL (6-20); Calcium 8.8 mg/dL (8.6-10.3); Carbon Dioxide 22 mEq/L (23-29); Chloride 110 mEq/L (98-107); Chol/HDL Ratio 4.2 (0-4.9); Cholesterol 231 mg/dL (< 200); Glucose 115 mg/dL (70-105); HDL Cholesterol 55 mg/dL (40-59); LDL Cholesterol,Calculated 146 mg/dL (0-99); Magnesium 2.3 mg/dL (1.6-2.6); Osmolality,Calculated 291 (280-300); Potassium 3.7 mEq/L (3.5-5.1); Sodium 140 mEq/L (136-145); Triglycerides 151 mg/dL (< 150); eGFR For Non-African Americans > 60 (> 60)
[2018-12-26] MEDS: Ipratropium/Albuterol Neb 3 ML IH SCH ×4 (03:57→21:34)
--- NOTE | 2018-12-26 06:31 | Event Note ---
Date of Encounter: 12/26/18 Time of Encounter: 05:22 Notified by nurse of patient having 6 beat run of vtach. Asymptomatic and vitals stable. EKG ordered similar to previous with one lead showing new t wave inversion, present in other leads on previous. Morning electrolytes normal. Will continue telemetry monitoring. Cardiology to see this a.m. Nurse to notify of any new changes.
[2018-12-26] MEDS: Heparin 25,000 UNIT/250 ML D5W 25,000 UNIT/250 ML IV.SOLN IVC SCH (06:49)
--- NOTE | 2018-12-26 09:53 | Cardiology Consult Note ---
<Ady Swain R - Last Filed: 12/26/18 09:45> Date of Encounter: 12/26/18 Time of Encounter: 09:46 Assessment and Plan (1) Acute systolic CHF (congestive heart failure), NYHA class 3 Current Visit: Yes Status: Acute Worsening dyspnea over the past 6 weeks, worsened yesterday AM with dyspnea at rest. TTE EF 20%, no LV thrombus. LVDD with elevated filling pressures. BNP 714, then 959 today. CTA negative for PE, but showed small bilateral pleural effusions. Will give one time dose of IV Lasix 40mg. No significant volume overload on exam. Denies orthopnea. Recommend 2L fluid and Na restriction, daily weights, strict I/Os. (2) Cardiomyopathy Current Visit: Yes Status: Acute New diagnosed of CMP--EF 20%. Dyspnea over the past 6 weeks. NICMP vs ICMP. Reports ETOH abuse--24 beers/week. Risk factors for CAD include HTN, tobacco abuse, family hx. ECG with new lateral T wave changes. Recommend [facility] to further evaluate. R/B/A discussed. Pt agrees to proceed. On BB. Will add low dose ACEi. 6 beat run NSVT on tele. Will discuss with Dr. Montiel regarding lifevest prior to d/c. Qualifiers: Cardiomyopathy type: unspecified Qualified Code(s): I42.9 - Cardiomyopathy, unspecified (3) Elevated troponin Current Visit: Yes Status: Acute Troponin 0.07, 0.08, 0.09--flat and adynamic in setting of CHF exacerbation, nondiagnostic for ACS. On heparin gtt. Will continue for now until after [facility]. C for new diagnosis of CMP. On statin, BB. Will start ASA. (4) Alcohol abuse Current Visit: Yes Status: Acute 24 beers/week. CMP as above. (5) Tobacco abuse Current Visit: Yes Status: Chronic Smoking cessation counseling given. (6) NSVT (nonsustained ventricular tachycardia) Current Visit: Yes Status: Acute 6 beat run NSVT on tele. On BB. K 3.7--replace, Mag 2.3. As above, new CMP. Will discuss lifevest prior to d/c. Continue tele. Discussion w patient/family: The assessment and plan as outlined above was discussed with the patient and/or family members who expressed understanding and agreement. All questions were answered. Thank you for involving us in the care of your patient. Please call with any questions. I will discuss all the above with Dr. Montiel and make changes as necessary. History of Present Illness Consult date: 12/26/18 Consult reason: CMP Chief complaint: dyspnea History of present illness: Mr. Santo is a 53 year old male with PMH of HTN, tobacco abuse, anxiety, who presents with dyspnea. Reports increased intermittent dyspnea over the past 6 weeks with acute worsening yesterday morning. He woke up out of sleep, felt panicky with tachycardia and gasping for air which improved with getting up and walking outside into the cool air. No chest pain or tightness. He reports intermittent palpitations. Episode of palpitations last week lasted for 4 hours. Denies any LE edema or orthopnea. Smokes 1ppd as well as smokes THC. Admits to drinking 24 beers/week. CTA negative for PE, but does show bibasilar effusions. BNP 700, trop 0.07, 0.08, 0.09. ECG with lateral ECG changes. Started on heparin gtt and admitted for further eval. TTE completed--EF 20%. No LV thrombus, LVDD with elevated filling pressures, mild-moderate MR, mild TR, mild phtn. Cardiology consulted for further recs. Pt denies personal hx of CAD, but reports family hx with father having first cardiac event at age 48. Past Med Surg Social Fam HX - Past Medical History Medical history: cancer, hypertension, kidney stones Additional medical history: skin cancer Psychiatric history: anxiety, depression - Past Surgical History Surgical History: appendectomy, herniorrhaphy - Social History Smoking Status: Current every day smoker Smokeless Tobacco Status: Yes (occasionally) Alcohol use: occasionally Drug use: marijuana - Family History Mother Living Status: Hx Family Cardiac Disorders: Yes (htn) Father Living Status: Hx Family Cardiac Disorders: Yes (MIs, CHF) Hx Family Endocrine Disorder: Yes (dm) Hx Family Neurologic Disorders: Yes (stroke) Medications and Allergies No Known Home Drugs 12/25/18 [History] Allergy/AdvReac Type Severity Reaction Status Date / Time No Known Allergies Allergy Verified 12/25/18 19:09 All Systems Review: The remainder of the systems were reviewed and are negative - Cardiovascular Cardiovascular: dyspnea at rest, dyspnea on exertion, palpitations - Respiratory Respiratory: dyspnea Physical Examination Vital Signs, Last 4 Hours Temp Pulse Resp BP Pulse Ox 12/26/18 06:56 97.7 F 91 16 132/90 93 Vital Signs Temp Pulse Resp BP Pulse Ox 12/26/18 06:56 97.7 F 91 16 132/90 93 12/26/18 03:57 17 93 12/26/18 03:54 97.6 F 96 16 131/86 93 12/25/18 23:50 97.8 F 90 16 123/74 92 12/25/18 21:33 16 92 12/25/18 19:33 97.9 F 103 14 147/99 93 12/25/18 16:18 18 95 12/25/18 15:12 98.0 F 102 16 141/98 93 12/25/18 12:44 98.1 F 98 14 137/91 93 Intake and Output 12/25/18 12/26/18 12/26/18 23:59 07:59 15:59 Intake Total 400 / 400 43 / 43 0 / 0 Balance 400 / 400 43 / 43 0 / 0 Intake: IV Fluids 125 / 125 43 / 43 Heparin 25,000 UNIT/250 ML D5W 125 / 125 43 / 43 25,000 unit In 250 ml @ 11 UNIT /KG/HR 9.979 mls/hr IVC .Q24H [facility] Rx#:[id number] Oral 275 / 275 0 / 0 Other: Meal npo Percent of Meal Consumed 0% # Voids 1 Weight 91.1 kg Patient Weight 12/26/18 23:59 Weight 91.1 kg General: Conversant, No Apparent Distress HEENT: Atraumatic, Normocephaly, Mucus Membranes Moist Neck: Normal carotid pulses Cardiac: Reg Rate and Rhythm, Normal S1 and S2, No Murmur Lungs: Other (diminished) Neuro: Alert and responsive, No focal deficits noted Abdomen: Soft, Non-Tender Skin: No rashes noted on visualized skin Musculoskeletal: No Chest Wall Tenderness Extremities: No Clubbing, No Cyanosis, No Edema, Normal Pulses Results 12/26/18 01:53 12/26/18 01:53 Lab Results 12/25/18 12/26/18 12/26/18 14:45 01:53 01:53 WBC 8.3 Hgb 17.2 H Hct 49.8 Plt Count 183 Sodium 140 Potassium 3.7 Chloride 110 H Carbon Dioxide 22 L BUN 13 Creatinine 1.08 Glucose 115 H Calcium 8.8 Magnesium 2.3 Troponin I 0.09 H* B-Natriuretic Peptide 12/26/18 02:02 WBC Hgb Hct Plt Count Sodium Potassium Chloride Carbon Dioxide BUN Creatinine Glucose Calcium Magnesium Troponin I B-Natriuretic Peptide 959 H Short CBC 12/26/18 Range/Units 01:53 WBC 8.3 (4.3-11.1) K/mcL Hgb 17.2 H (12.9-16.9) g/dL Hct 49.8 (37.5-50.1) % Plt Count 183 (140-400) K/mcL BMP 12/26/18 Range/Units 01:53 Sodium 140 (136-145) mEq/L Potassium 3.7 (3.5-5.1) mEq/L Chloride 110 H (98-107) mEq/L Carbon Dioxide 22 L (23-29) mEq/L BUN 13 (6-20) mg/dL Creatinine 1.08 (0.70-1.30) mg/dL Glucose 115 H (70-105) mg/dL Calcium 8.8 (8.6-10.3) mg/dL Cardiac Enzymes 12/25/18 Range/Units 14:45 Troponin I 0.09 H* (< 0.04) ng/mL Impressions Echocardiogram 12/25/18 08:41 Impressions: LVEF 20%. Moderately dilated left ventricle. LV diastolic dysfunction with elevated filling pressures. There is no LV thrombus. Definity echo contrast was used. Normal right ventricular structure and function. Mild-moderate mitral regurgitation. Mild tricuspid regurgitation. Mild pulmonary hypertension based on TR gradient. No prior echo for comparison. Left Ventricular Wall Motion: Rest Echo Findings The apex, apical inferior, mid inferior, basal inferior, apical anterior, mid anterior, basal anterior, apical septal, mid inferior septal, basal inferior septal, apical lateral, mid anterior lateral, basal anterior lateral, mid anterior septal, mid inferior lateral, basal anterior septal and basal inferior lateral olson were hypokinetic. Findings: Study Quality * Technically adequate exam. ECG Findings * Sinus tachycardia. Left Ventricle * LVEF 20%. * Moderately dilated left ventricle. * LV diastolic dysfunction with elevated filling pressures. * There is no LV thrombus. * Definity echo contrast was used. Right Ventricle * Normal right ventricular structure and function. Left Atrium * Normal left atrial size. Right Atrium * Normal right atrial size. Aortic Valve * No aortic regurgitation. * Aortic valve not well visualized. * No aortic stenosis. Mitral Valve * No mitral stenosis. * Mild-moderate mitral regurgitation. * Normal mitral valve structure. Tricuspid Valve * Tricuspid valve not well visualized. * Mild tricuspid regurgitation. Pulmonic Valve * Pulmonic valve is not well visualized. * No pulmonic stenosis. * No pulmonic regurgitation. Pulmonary Artery * Pulmonary artery not well visualized. Aorta * Normally sized aortic root. Pericardium * There is no pericardial effusion present. Interatrial Septum * Interatrial septum not well evaluated. IVC * The IVC is not well evaluated. Active Medications Acetaminophen (Tylenol) 650 mg PO Q6HR PRN PRN Reason: Mild Pain/Fever Stop: 06/26/19 08:40 Albuterol/Ipratropium (Duoneb) 3 ml IH [id number] DAVID Stop: 06/26/19 16:01 Last Admin: 12/26/18 03:57 Dose: 3 ml Carvedilol (Coreg) 3.125 mg PO BIDWM DAVID; Protocol Stop: 06/26/19 21:01 Last Admin: 12/25/18 20:44 Dose: 3.125 mg Heparin Sodium (Porcine) (Heparin) 4,000 unit IVP Q6HR PRN PRN Reason: SEE COMMENTS Stop: 06/26/19 06:38 Heparin Sodium (Porcine) (Heparin) 2,000 unit IVP Q6H PRN PRN Reason: SEE COMMENTS Stop: 06/26/19 06:38 Hydroxyzine Pamoate (Hydroxyzine Pamoate) 25 mg PO TID PRN PRN Reason: anxiety Stop: 06/26/19 12:07 Last Admin: 12/25/18 20:45 Dose: 25 mg Heparin Sodium/Dextrose (Heparin 25,000 Unit/250 Ml D5w) 25,000 unit in 250 mls @ 9.979 mls/hr IVC .Q24H DAVID; Protocol Stop: 06/26/19 06:46 Last Admin: 12/26/18 06:49 Dose: 11.02 unit/kg/hr, 10 mls/hr Nicotine (Nicoderm) 21 mg TD DAILY [facility]; Protocol Stop: 06/26/19 10:01 Last Admin: 12/25/18 11:33 Dose: 21 mg - Imaging and Cardiology Echo: report reviewed - EKG Interpretation EKG results cardiology: personally reviewed, other (12 hr tele AVG HR 91, SR, 6 beat run NSVT) Consult Discharge Plan - Plan Referrals: Emeka Ponce MD [Primary Care Provider] - <Efren Montiel - Last Filed: 12/26/18 10:56> Date of Encounter: 12/26/18 - Attending Attestation I have personally performed a face to face evaluation on this patient. I have reviewed and agree with the care plan. History and Exam by me shows: CC: shortness of breath HPI: PT reports awoke from sleeping approx 10 pm 12/25/18 with sudden onset of shortness of breath, anxiety and heart racing. He denies chest pain or pressure with the event, lasted five minutes, went outside to breath cool air with some improvement. Symptoms lasted approximately thirty minutes before all resolved. Pt reports progressive symptoms of shortness of breath with exertion and fatique x two to three months, notes marked decrease in exercise tolerence over that period of time, is no longer able to perform normal activites of daily living without shortness of breath. He received IV diuresis in ER, with improvement in symptoms. ROS: reviewed PMH: reviewed Labs, Xray, Echo reviewed PE; PT seen and examined, agree with physical findings as documented. IMP/Plan 1. New dilated cardiomyopathy, EF 20%, global hypokinesis, unclear etiology, recommend C/poss to evaluate CAD as etiology of cardiomyopathy, risks and benefits discussed,pt agrees to proceed. 2. Acute systolic heart failure secondary to #1, better compensated with IV diuresis, further recommendations pending [facility] results. 3. NSVT - back in NSR, started BB, further recs pending [facility] results. 4. Tobacco abuse: discussed lifestyle changes 5. EtOh abuse: may be related to cardiomyopathy, await results of [facility] Assessment and Plan Discussion w patient/family: The assessment and plan as outlined above was discussed with the patient and/or family members who expressed understanding and agreement. All questions were answered. Thank you for involving us in the care of your patient. Please call with any questions. History of Present Illness History of present illness: Mr. Santo is a 53 year old male All Systems Review: The remainder of the systems were reviewed and are negative Physical Examination Vital Signs, Last 4 Hours Temp Pulse Resp BP Pulse Ox 12/26/18 06:56 97.7 F 91 16 132/90 93 Results 12/26/18 01:53 12/26/18 01:53 Lab Results 12/25/18 12/26/18 12/26/18 14:45 01:53 01:53 WBC 8.3 Hgb 17.2 H Hct 49.8 Plt Count 183 Sodium 140 Potassium 3.7 Chloride 110 H Carbon Dioxide 22 L BUN 13 Creatinine 1.08 Glucose 115 H Calcium 8.8 Magnesium 2.3 Troponin I 0.09 H* B-Natriuretic Peptide 12/26/18 02:02 WBC Hgb Hct Plt Count Sodium Potassium Chloride Carbon Dioxide BUN Creatinine Glucose Calcium Magnesium Troponin I B-Natriuretic Peptide 959 H
[2018-12-26] MEDS ORDERED: Furosemide 40 MG/4 ML VIAL IVP ONE (10:04)
[2018-12-26] MEDS: Nicotine 21 MG PATCH.TD24 TD SCH (10:31)
[2018-12-26] MEDS: hydrOXYzine pamoate 25 MG CAPSULE PO PRN (10:32)
[2018-12-26] MEDS: Aspirin 81 MG TAB.CHEW PO SCH (10:58)
--- NOTE | 2018-12-26 12:43 | Internal Med Progress Note ---
Hospitalist Progress Note - Encounter Date of Encounter: 12/26/18 Time of Encounter: 10:35 - Subjective Interval History: Patient is sitting up in bed. Feels comfortable. He is anxious about his current medical condition. Denies any chest pain at this time. Reports that she has had episodes of chest pain in the past but nothing recently. No shortne ss of breath currently but gets short of breath with minimal exertion. He had a 6 beat run of nonsustained ventricular tachycardia overnight. - Exam Vitals: Temp Pulse Resp BP Pulse Ox 97.7 F 107 17 145/104 94 12/26/18 10:41 12/26/18 10:41 12/26/18 11:18 12/26/18 10:41 12/26/18 11:18 Exam: General: Patient is alert, no acute distress, oriented x 3 ENT: Mucous membranes moist Respiratory: Good respiratory effort. Normal breath sounds. No wheezing or crackles. Cardiovascular: Regular rate and rhythm. s1 and s2 normal No clicks, rubs, gallops, or murmurs. No pedal edema Abdomen: Abdomen is soft, nontender. Bowel sounds are present Musculoskeletal: Spontaneously moving all extremities Skin: warm, dry, intact. Neuro: Alert oriented x 3 normal cranial nerves, no focal deficits - Assessment and Plan (1) Acute systolic CHF (congestive heart failure), NYHA class 3 Current Visit: Yes Status: Acute Assessment and Plan: Patient with new diagnosis of acute congestive heart failure. Echocardiogram shows EF of 20%. Cardiology consult. Plan for left heart catheterization today. He did receive 1 dose of IV Lasix today. We will continue to monitor urine output. (2) Cardiomyopathy Current Visit: Yes Status: Acute Assessment and Plan: Patient with cardiomyopathy per 2-D echocardiogram. Awaiting left heart catheterization to see if this is ischemic or nonischemic. Continue lisinopril, Carvedilol . Cardiology following. (3) Alcohol abuse Current Visit: Yes Status: Chronic Assessment and Plan: History of chronic alcohol abuse. (4) Elevated troponin Current Visit: Yes Status: Acute Assessment and Plan: Adynamic. Patient currently on IV heparin. Plan for left heart catheterization today (5) NSVT (nonsustained ventricular tachycardia) Current Visit: Yes Status: Acute Assessment and Plan: Episodes of nonsustained ventricular tachycardia. Continue beta nuha. Patient will most likely need LifeVest prior to discharge. Replete electrolytes As needed (6) Essential hypertension Current Visit: Yes Status: Chronic Assessment and Plan: Elevated today. Continue carvedilol, Zestril. - Time Spent with Patient Total time spent is greater than 50% in coordination of care (as documented) at patient's floor/unit and/or counseling patient: Internal Medicine: Result - Labs CBC & Chem 7: 12/26/18 01:53 12/26/18 01:53 Labs: Short CBC 12/26/18 Range/Units 01:53 WBC 8.3 (4.3-11.1) K/mcL Hgb 17.2 H (12.9-16.9) g/dL Hct 49.8 (37.5-50.1) % Plt Count 183 (140-400) K/mcL BMP 12/26/18 01:53 Sodium 140 Potassium 3.7 Chloride 110 H Carbon Dioxide 22 L BUN 13 Creatinine 1.08 Glucose 115 H Calcium 8.8 Cardiac Enzymes 12/25/18 Range/Units 14:45 Troponin I 0.09 H* (< 0.04) ng/mL - ABG Interpretation ABG results: PT/INR, D-dimer PT 11.0 Seconds (9.4-12.1) 12/25/18 07:28 D-Dimer 1039 ng/mLFEU (0-500) H 12/25/18 04:23 - Impressions Impressions Echocardiogram 12/25/18 08:41 Impressions: LVEF 20%. Moderately dilated left ventricle. LV diastolic dysfunction with elevated filling pressures. There is no LV thrombus. Definity echo contrast was used. Normal right ventricular structure and function. Mild-moderate mitral regurgitation. Mild tricuspid regurgitation. Mild pulmonary hypertension based on TR gradient. No prior echo for comparison. Left Ventricular Wall Motion: Rest Echo Findings The apex, apical inferior, mid inferior, basal inferior, apical anterior, mid anterior, basal anterior, apical septal, mid inferior septal, basal inferior septal, apical lateral, mid anterior lateral, basal anterior lateral, mid anterior septal, mid inferior lateral, basal anterior septal and basal inferior lateral olson were hypokinetic. Findings: Study Quality * Technically adequate exam. ECG Findings * Sinus tachycardia. Left Ventricle * LVEF 20%. * Moderately dilated left ventricle. * LV diastolic dysfunction with elevated filling pressures. * There is no LV thrombus. * Definity echo contrast was used. Right Ventricle * Normal right ventricular structure and function. Left Atrium * Normal left atrial size. Right Atrium * Normal right atrial size. Aortic Valve * No aortic regurgitation. * Aortic valve not well visualized. * No aortic stenosis. Mitral Valve * No mitral stenosis. * Mild-moderate mitral regurgitation. * Normal mitral valve structure. Tricuspid Valve * Tricuspid valve not well visualized. * Mild tricuspid regurgitation. Pulmonic Valve * Pulmonic valve is not well visualized. * No pulmonic stenosis. * No pulmonic regurgitation. Pulmonary Artery * Pulmonary artery not well visualized. Aorta * Normally sized aortic root. Pericardium * There is no pericardial effusion present. Interatrial Septum * Interatrial septum not well evaluated. IVC * The IVC is not well evaluated. Consult Discharge Plan - Plan Referrals: Emeka Ponce MD [Primary Care Provider] - _ (2) Cardiomyopathy Qualifiers: Cardiomyopathy type: unspecified Qualified Code(s): I42.9 - Cardiomyopathy, unspecified
[2018-12-26] MEDS ORDERED: Nitroglycerin 1,000 MCG/10 ML VIAL IV ONE (13:47)
[2018-12-26] MEDS ORDERED: ISOVUE-370 200 ML INFUS..BTL ONE (13:47)
[2018-12-26] MEDS ORDERED: Heparin 1,000 UNITS/500 mL 500 ML ONE (13:47)
[2018-12-26] MEDS ORDERED: *HR* Heparin 10,000 UNIT/10 ML VIAL ONE (13:47)
[2018-12-26] MEDS ORDERED: 0.9 % Sodium Chloride 1,000 ML ONE (13:47)
[2018-12-26] MEDS ORDERED: Verapamil 5 MG/2 ML VIAL ONE (14:09)
[2018-12-26] MEDS ORDERED: *HR* Midazolam HCl 2 MG/2 ML VIAL ONE (14:09)
[2018-12-26] MEDS ORDERED: Ondansetron 4 MG/2 ML VIAL IVP PRN (14:33)
--- NOTE | 2018-12-26 14:33 | Event Note ---
Date of Encounter: 12/26/18 Time of Encounter: 14:31 - Cardiology Event Note Cath Completed LVEF 20%, global mild single vessel disease-lad 25% Normal rca and circ. Recommend med therapy If on po diuretics can use bblockers, entresto and asa. Oupt med titration and repeat lvef evaluation.
--- NOTE | 2018-12-26 14:44 | Invasive Diagnostic Lab Proc ---
Name: Boyd Santo Date of Study: 12/26/2018 Date: 1965 Ht: 70.0in Medical Record#: [id number] Age: 53 Wt: 200.62lb Gender: Male BSA: 2.09 Order #: [id number] BMI: 28.79 Physicians Procedure Physician: Marty Goins MD Referring MD: Referring MD: Staff Name Position Time In Eboni, Christopher RN Sleep Manager 02:07 PM Gonzales Simon RN Sleep Manager 02:07 PM Edis Cm RT (R) Scrub 02:07 PM Procedures Performed Procedure L HRT ARTERY/VENTRICLE ANGIO Pre-Procedure Checklist Pt not NPO for procedure and MD aware. Plan of Care Patient will tolerate the procedure without complications. Adequate level of comfort will be maintained. Hemodynamics will remain stable Patient will recover from procedure without complications. Respiratory function will be maintained. Cardiac rhythm will remain stable. Patient temperature will be maintained. Patient and/or family have verbalized understanding of the procedure. Patient Education Chief Complaint/Reason for Test: Cardiac Cath Developmental Category: Adult (18-64 years) Developmentally Appropriate for Age: Yes Learning Barriers: None Education Needs: Procedure Education Method: Verbal Information Taught: Cardiac Cath Educational Evaluation: Able to repeat information Intravenous Access Time IV Size Location DC'd Fluid/Drip Rate Units RN 01:54 PM 20g 1 10/12" Patent On Arrival Rt Antecubital 0.9NaCl 25 ml/hr Allergies Nkda - No Known Drug Allergies No Known Allergies Vital Signs Time BP (mmHg) HR (bpm) O2 Sat. RR (bpm) LOC 01:55 PM 132 / 90 91 93 % 16 5 = Fully awake and oriented or at pre-proc level 02:08 PM / % 5 = Fully awake and oriented or at pre-proc level 02:14 PM 150 / 114 108 93 % 22 02:18 PM 143 / 104 105 90 % 28 02:23 PM 139 / 100 103 89 % 25 Procedural Medications Time Medication Dose Units Method Given By 02:08 PM Oxygen 2 L/min nasal cannula Gonzales Simon RN 02:13 PM Versed 2 mg Intravenous Gonzales Simon RN 02:16 PM Lidocaine 2% 2 ml Subcutaneous Marty Goins MD 02:18 PM Heparin 2000 units Nitroglycerin 200 mcg Verapamil 2.5 mg Intraarterial Marty Goins MD 02:22 PM Oxygen 4 L/min nasal cannula Gonzales Simon RN ASA Classification: CLASS II- Mild systemic disease (i.e. well-controlled diabetes, hypertension, asthma, cigarette smoking) Rachana Score Preprocedure Postprocedure Activity 2- Moves 4 extremities sustained head lift Activity 2- Moves 4 extremities sustained head lift Circulation 2- SBP +/= 20 points of pre-anesthetic level Circulation 2- SBP +/= 20 points of pre-anesthetic level Consciousness 2- Awake and alert oriented x 3 Consciousness 2- Awake and alert oriented x 3 O2 Saturation 2- Able to maintain O2 satruation of 92% on room air O2 Saturation 2- Able to maintain O2 satruation of 92% on room air Respiratory 2- Able to deep breathe and cough well Respiratory 2- Able to deep breathe and cough well Total Score 10 Total Score 10 Contrast Agent: Isovue Diagnostic Contrast: 60 ml Total Contrast: 60 ml Fluoro Dose: 34 mGy Procedure Log Time Note Enter By 02:06 PM 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 Right wrist and Right groin prepped with Chloraprep by Edis Cm (R), then patient was draped. Skin intact. : PM [facility] Landry and kirit completed [facility] :08 PM Sign in performed according to hospital policy. Informed consent was obtained. [facility]:08 PM Procedure start 14:[facility] PM Time: 14:08 Patient comfortable and pain free: Yes [email or web address] :08 PM Time: 14:08LOC: 5 = Fully awake and oriented or at pre-proc level [facility] PM Time: 14:08 Oxygen on at 2 L/min per nasal cannula by Gonzales Simon RN [email or web address] 02:08 PM CathStat 02:08 PM [ Start or Stop Vital ] 02:11 PM Vitals capture started with the following parameters, Patient=Adult, Interval=5 min, Initial Aofmznpi=149 mmHg, Deflation Rate=3 mmHg, Cuff placed on Right Arm 02:11 PM Vitals capture stopped. 02:12 PM Recorded ECG: DM=694 Condition=Condition 1 02:12 PM Vitals capture started with the following parameters, Patient=Adult, Interval=5 min, Initial Gqujthka=586 mmHg, Deflation Rate=3 mmHg, Cuff placed on Right Arm 02:13 PM Recorded ECG: QX=782 Condition=Condition 1 02:13 PM ASA Class CLASS II- Mild systemic disease (i.e. well-controlled diabetes, hypertension, asthma, cigarette smoking) [email or web address] 02:13 PM Time: 14:13 Versed 2 mg Intravenous Given by Gonzales Simon RN [email or web address] 02:14 PM RH=714 bpm, ZIUL=193/114 mmhg, SpO2=93.0 %, Resp=22 B/min, Comment=ST 02:16 PM Time out was performed according to hospital policy. Conscious sedation and anesthesia was achieved (see medication log with in this report above) [email or web address] 02:17 PM Time: 14:16 2 ml Lidocaine 2% to right radial Subcutaneous Given by Marty Goins MD [email or web address] 02:17 PM Pressure channel 2 zeroed. 02:18 PM Access obtained by percutaneous puncture. 6Fr 10cm Terumo Glidesheath sheath placed in right Radial artery. [id number] [email or web address] 02:18 PM Time: 14:18 Patient given 2,000 units Heparin, 200 mcg Nitroglycerin, and 2.5 mg Verapamil Intraarterial by Marty Goins MD. This is given to reduce risk of vessel spasm and thrombosis. [email or web address] 02:18 PM OA=079 bpm, GJKF=071/104 mmhg, SpO2=90.0 %, Resp=28 B/min, EtCO2=32 mmHg 02:19 PM 0.035 260cm Navilyst 3mmJ wire [id number] [email or web address] 02:20 PM 5Fr FL 3.5 catheter inserted over the wire [id number] [email or web address] 02:20 PM LCA angiography performed in multiple views. [email or web address] 02:20 PM Recorded Pressure: Ao, HR=96, Condition=Condition 1 (Aorta) Ao 131/96/110 02:21 PM Catheter removed [email or web address] 02:22 PM 5Fr FR 4 catheter inserted over the wire DN [email or web address] 02:22 PM RCA angiography performed in multiple views. [email or web address] 02:22 PM Time: 14:22 Oxygen on at 4 L/min per nasal cannula by Gonzales Simon RN [email or web address] 02:23 PM HB=450 bpm, IAPE=194/100 mmhg, SpO2=89.0 %, Resp=25 B/min, EtCO2=30 mmHg, Comment=ST 02:23 PM Recorded Pressure: Ao, KX=123, Condition=Condition 1 (Aorta) Ao 147/98/120 02:24 PM Catheter removed [email or web address] 02:25 PM 5Fr Pigtail catheter inserted over the wire DN [email or web address] 02:25 PM Catheter crossed the aortic valve and was selectively placed in the left ventricle. Pressures recorded on pullback for left heart catheterization. [email or web address] 02:25 PM Bolus angiogram of left Ventricle complete: ml/sec for a total of 10 mls [email or web address] 02:25 PM Recorded Pressure: LV, XB=805, Condition=Condition 1 (Left Ventricle) LV 91/2/-2 02:25 PM Recorded Pressure: LV, LY=452, Condition=Condition 1 (Left Ventricle) LV 136/13/15 02:26 PM Recorded Pressure: LV, Ao, HR=97, Condition=Condition 1 (Left Ventricle) LV 139/12/15, (Aorta) Ao 139/-29/66 02:26 PM Catheter removed [email or web address] 02:27 PM Procedure completed at 14:27 12/26/2018 [email or web address] 02:27 PM Coronary Dominance: right [email or web address] 02:27 PM Sign out completed: Radiation Dose 369.69 mGy, 33.8 Gy/cm2 Fluoro Time: 1.7 Isovue 370 - 200ml contrast 60 ml given by Marty Goins MD. Complications: None. 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 Sedation minutes 15. Cardiac Rehab Consult needed: No. Confirmed administered medications: Yes [email or web address] 02:28 PM Vitals capture stopped. 02:28 PM Isovue 370 - 200ml,1 Bottle(s) used. [email or web address] 02:28 PM Arterial sheath pulled, Vasc Band closure device used and was Successful S/N. [email or web address] 02:28 PM 12 ml air in Vasc Band. [email or web address] 02:29 PM Estimated Blood Loss: minimal [email or web address] 02:29 PM Post ECG Sinus Tachycardia [email or web address] 02:29 PM Post Blood Pressure 143/100 [email or web address] 02:29 PM 14:29 Post Pulses Rt Radial 2+ [email or web address] 02:29 PM Information taught Cardiac Cath and Vasc Band [email or web address] 02:29 PM Education needs Procedure, Plan of Care, and Disease Process [email or web address] 02:29 PM Learning barriers :None [email or web address] 02:29 PM Education Methods Verbal [email or web address] 02:29 PM Education evaluation Able to repeat information [email or web address] 02:30 PM Site status No bleeding/hematoma - Rt Wrist as reported by Edis Cm RT (R) at 14:29 [email or web address] 02:30 PM Report given to Brittnee GRIER Pt taken to 2S #27. 14:30 [email or web address] 02:30 PM Delay to floor No [email or web address] 02:30 PM Family placed in consult room. [email or web address] 02:30 PM Complications: None [email or web address] 02:37 PM Patient out of room: 14:37 [email or web address] Complications Complication None None Hemodynamics Pressures Site Systolic/A Wave Diastolic/V Wave Mean AO 131 96 110 AO 147 98 120 LV 91 2 -2 LV 136 13 15 LV 139 12 15 AO 139 -29 66 Post Procedure Information Blood Pressure: 143/100 mmHg Rhythm: Sinus Tachycardia Post procedural instructions were given Closure Device Time Device Success/Fail 12/26/2018 2:28:00 PM Mechanical Compression yes Site Checks Time Location Status Staff Sheath In? Note 02:29 PM Rt Wrist No bleeding/hematoma Edis Cm RT (R) Pulses Time Site Pre-Procedure Post-Procedure Note 12/26/2018 1:55:00 PM Bilateral DP & PT 2+ 12/26/2018 1:55:00 PM Bilateral radial 2+ 2:29:00 PM Rt Radial 2+ Updated by May Toscano, RT(R) on 12/26/2018 2:37:56 PM electronically signed on 12/26/2018 2:38:36 PM with status of Final
--- NOTE | 2018-12-26 14:59 | Event Note ---
Date of Encounter: 12/26/18 Time of Encounter: 14:57 - Cardiology Event Note Per interventionalist event note below, NICMP confirmed on LHC. Suspect ETOH induced--24 beers/week. Started PO Lasix 20mg daily, on BB. Entresto ordered with cooper check pending. Discussed and reviewed with Dr. Montiel. Given EF 20%, no intervention and episodes of NSVT, recommend lifevest. This has been ordered. Will re-evaluate in AM.
[2018-12-26] MEDS: SACUBITRIL/VALSARTAN 24/26 MG TABLET PO SCH (20:38)
[2018-12-27] MEDS: Ipratropium/Albuterol Neb 3 ML IH SCH (04:10)
[2018-12-27 05:35] LABS: Basophils # 0.1 K/mcL (0.0-0.2); Basophils % 0.7 %; Eosinophils # 0.1 K/mcL (0.0-0.6); Eosinophils % 1.4 %; Hematocrit 54.3 % (37.5-50.1); Hemoglobin 18.7 g/dL (12.9-16.9); Immature Granulocytes % 0.4 % (0-4); Mean Corpuscular HGB Conc 34.4 g/dL (31.6-35.5); Mean Corpuscular Hemoglobin 30.8 pg (28.0-33.3); Mean Corpuscular Volume 89.3 fL (83.0-100.0); Monocytes # 0.6 K/mcL (0.0-1.3); Monocytes % 6.3 %; Neutrophils # 7.1 K/mcL (1.6-8.9); Platelet Count 234 K/mcL (140-400); Red Blood Count 6.08 M/mcL (4.19-5.50); Red Cell Distribution Width 13.1 % (11.5-14.5); Segmented Neutrophils % 71.2 %
[2018-12-27 06:27] LABS: BUN/Creatinine Ratio 14 (6-26); Blood Urea Nitrogen 17 mg/dL (6-20); Calcium 9.3 mg/dL (8.6-10.3); Carbon Dioxide 22 mEq/L (23-29); Chloride 105 mEq/L (98-107); Glucose 132 mg/dL (70-105); Osmolality,Calculated 291 (280-300); Potassium 3.8 mEq/L (3.5-5.1); Sodium 139 mEq/L (136-145); eGFR For Non-African Americans > 60 (> 60)
[2018-12-27 06:41] VITALS: BP 112/76
[2018-12-27] MEDS ORDERED: *HR* Heparin 5,000 UNIT/ML VIAL SQ SCH (08:15)
[2018-12-27] MEDS ORDERED: Furosemide 20 MG TABLET PO SCH (09:00)
[2018-12-27] MEDS: Aspirin 81 MG TAB.CHEW PO SCH (09:16)
[2018-12-27] MEDS: SACUBITRIL/VALSARTAN 24/26 MG TABLET PO SCH (09:18)
[2018-12-27] MEDS: Nicotine 21 MG PATCH.TD24 TD SCH (09:18)
--- NOTE | 2018-12-27 09:25 | Cardiology Progress Note ---
Date of Encounter: 12/27/18 Time of Encounter: 09:21 Assessment and Plan (1) Cardiomyopathy Current Visit: Yes Status: Acute New diagnosed of CMP--EF 20%. [facility] yesterday stable one vessel CAD--20% mLAD lesion. NICMP, suspect ETOH induced--24 beers/week. On BB. Added Entresto. Insurance requires prior auth/requests cheaper alternative. Hx of intolerance to ACEi--developed pancreatitis. Agrees to start ARB--plan to start 36 hours after last Entresto dose. Continue BB, ARB, PO Lasix. Recommended life vest, refuses to stay inpt for fitting. 6 beat run NSVT 2 nights ago, none since. R/B/A. Pt aware of risk of sudden cardiac . Lorenzo plans to apply lifevest at pt's home later today. Plan to repeat TTE outpt in 3 months. Cardiology signing off. Reconsult PRN. Will coordinate outpt follow-up in 1-2 weeks. Qualifiers: Cardiomyopathy type: alcoholic Qualified Code(s): I42.6 - Alcoholic car diomyopathy (2) Acute systolic CHF (congestive heart failure), NYHA class 3 Current Visit: Yes Status: Acute Worsening dyspnea over the past 6 weeks. TTE EF 20%, no LV thrombus. LVDD with elevated filling pressures. BNP 714, then 959. CTA negative for PE, but showed small bilateral pleural effusions. Was given one time dose of IV Lasix 40mg yesterday. Started on PO Lasix 20mg daily for maintenance dosing. No significant volume overload on exam. Denies orthopnea. Recommend 2L fluid and Na restriction, daily weights, strict I/Os. CHF teaching discussed. (3) Alcohol abuse Current Visit: Yes Status: Chronic 24 beers/week. CMP as above. (4) Tobacco abuse Current Visit: Yes Status: Chronic Smoking cessation counseling given. (5) NSVT (nonsustained ventricular tachycardia) Current Visit: Yes Status: Acute 6 beat run NSVT on tele 2 nights ago. BB increased yesterday, no recurrence. As above, recommended lifevest. Pt declines staying inpt for vest, but company plans to fit pt at home later today. (6) CAD (coronary artery disease) Current Visit: Yes Status: Acute C yesterday stable 1V CAD--20% mLAD. Right radial access site healing well. No bleeding, hematoma or ecchymosis noted. ASA, Statin, BB. NICMP. Qualifiers: Coronary Disease-Associated Artery/Lesion type: [place] artery [place] vs. transplanted heart: [place] heart Associated angina: without angina Qualified Code(s): I25.10 - Atherosclerotic heart disease of [place] coronary artery without angina pectoris Discussion w patient/family: The assessment and plan as outlined above was discussed with the patient and/or family members who expressed understanding and agreement. All questions were answered. Thank you for involving us in the care of your patient. Please call with any questions. I will discuss all the above with Dr. Montiel and make changes as necessary. Subjective Principal diagnosis: NICMP, CHF Interval history: Pt reports intermittent cough/chest congestion. Dyspnea improving. Denies chest pain. Objective Vital Signs, Last 4 Hours Temp Pulse Resp BP Pulse Ox 12/27/18 06:39 98.2 F 91 18 112/76 92 Vital Signs Temp Pulse Resp BP Pulse Ox 12/27/18 06:39 98.2 F 91 18 112/76 92 12/27/18 04:10 16 93 12/27/18 03:57 97.7 F 89 15 135/88 94 12/27/18 00:06 97.6 F 91 16 135/96 92 12/26/18 21:34 16 93 12/26/18 19:18 100 15 133/91 93 12/26/18 18:45 105 16 139/94 96 12/26/18 18:00 102 16 133/100 96 12/26/18 17:30 98 16 111/74 96 12/26/18 16:30 102 16 141/92 96 12/26/18 16:15 103 16 156/103 94 12/26/18 16:00 105 16 156/103 92 12/26/18 15:45 109 16 148/105 90 12/26/18 15:35 107 17 140/101 95 12/26/18 15:30 105 148/112 12/26/18 15:15 105 151/103 12/26/18 15:09 101 16 142/104 91 12/26/18 15:00 18 91 12/26/18 14:51 100 16 142/108 92 12/26/18 11:18 17 94 12/26/18 10:41 97.7 F 107 17 145/104 94 Intake and Output 12/26/18 12/27/18 12/27/18 23:59 07:59 15:59 Intake Total 500 / 500 240 / 240 Balance 500 / 500 240 / 240 Intake: Oral 500 / 500 240 / 240 Other: Meal Breakfast Percent of Meal Consumed 100% 100% # Voids 2 Weight 89.4 kg Patient Weight 12/27/18 23:59 Weight 89.4 kg General: Conversant, No Apparent Distress HEENT: Atraumatic, Normocephaly, Mucus Membranes Moist Neck: Normal carotid pulses Cardiac: Reg Rate and Rhythm, Normal S1 and S2, No Murmur Lungs: Other (diminished) Neuro: Alert and responsive, No focal deficits noted Abdomen: Soft, Non-Tender Skin: No rashes noted on visualized skin Musculoskeletal: No Chest Wall Tenderness Extremities: No Clubbing, No Cyanosis, No Edema, Normal Pulses Results 12/27/18 05:19 12/27/18 05:19 Lab Results 12/27/18 12/27/18 05:19 05:19 WBC 9.9 Hgb 18.7 H D Hct 54.3 H Plt Count 234 Sodium 139 Potassium 3.8 Chloride 105 Carbon Dioxide 22 L BUN 17 Creatinine 1.21 Glucose 132 H Calcium 9.3 Short CBC 12/27/18 Range/Units 05:19 WBC 9.9 (4.3-11.1) K/mcL Hgb 18.7 H D (12.9-16.9) g/dL Hct 54.3 H (37.5-50.1) % Plt Count 234 (140-400) K/mcL Neutrophils # 7.1 (1.6-8.9) K/mcL BMP 12/27/18 Range/Units 05:19 Sodium 139 (136-145) mEq/L Potassium 3.8 (3.5-5.1) mEq/L Chloride 105 (98-107) mEq/L Carbon Dioxide 22 L (23-29) mEq/L BUN 17 (6-20) mg/dL Creatinine 1.21 (0.70-1.30) mg/dL Glucose 132 H (70-105) mg/dL Calcium 9.3 (8.6-10.3) mg/dL Active Medications Acetaminophen (Tylenol) 650 mg PO Q6HR PRN PRN Reason: Mild Pain/Fever Stop: 06/26/19 08:40 Albuterol/Ipratropium (Duoneb) 3 ml IH [id number] [facility] Stop: 06/26/19 16:01 Last Admin: 12/27/18 04:10 Dose: 3 ml Aspirin (Aspirin) 81 mg PO DAILY [facility] Stop: 06/27/19 10:46 Last Admin: 12/27/18 09:16 Dose: 81 mg Carvedilol (Coreg) 6.25 mg PO BIDWM [facility]; Protocol Stop: 06/27/19 17:01 Last Admin: 12/27/18 09:17 Dose: 6.25 mg Furosemide (Lasix) 20 mg PO DAILY [facility] Stop: 06/28/19 09:01 Last Admin: 12/27/18 09:17 Dose: 20 mg Heparin Sodium (Porcine) (Heparin) 5,000 unit SQ Q12HCO [facility] Stop: 06/28/19 08:16 Last Admin: 12/27/18 09:17 Dose: Not Given Hydroxyzine Pamoate (Hydroxyzine Pamoate) 25 mg PO TID PRN PRN Reason: anxiety Stop: 06/26/19 12:07 Last Admin: 12/26/18 10:32 Dose: 25 mg Nicotine (Nicoderm) 21 mg TD DAILY [facility]; Protocol Stop: 06/26/19 10:01 Last Admin: 12/27/18 09:18 Dose: Not Given Ondansetron HCl (Zofran) 4 mg IVP Q6HR PRN; Protocol PRN Reason: Nausea And Vomiting Stop: 06/27/19 14:34 - Imaging and Cardiology Echo: report reviewed Cardiac cath: report reviewed - EKG Interpretation EKG results cardiology: other (12 hr tele AVG HR 90, SR, no significant pauses or arrhythmias noted.) Consult Discharge Plan - Plan Additional Instructions: RISK FACTORS: STOP SMOKING: If you smoke, STOP. Smoking or tobacco use significantly increases your risk of heart disease because nicotine causes the arteries to narrow or constrict. It also causes fats to stick to the artery. Your chances of having a heart attack are greatly increased if you continue to smoke. For more information, call the education line for smoking cessation 3-374-PYVACLH EAT A LOW FAT/CHOLESTEROL/SODIUM DIET: This diet may help reduce your chances of having a heart attack. LIFTING: With affected extremity: Avoid bending, pushing off and lifting more than 2 pounds for 24 hours The following 48 hours, avoid lifting anything more than 5 pounds Avoid strenuous activity or repetitive motions ACTIVITY: You may walk or climb stairs as tolerated You can resume sexual activity as tolerated In general, you are encouraged to engage in a minimum of 30 minutes or more of moderate intensity physical activity, such as brisk walking, daily or at least 3-4 times weekly BATHING Do not submerge the site into water (bath tub, hot tub, swimming pool, dishes) for 1 week. This can be a source for infection into the blood stream. You may shower after 24 hours SITE CARE: After 24 hours, you may remove the dressing and leave the site open to air. Keep the site clean and dry. Clean gently and pat dry. You can expect bruising and tenderness that gradually resolve within a week or two. Return to work as instructed per your physician Resume driving as instructed per physician Keep all scheduled follow up appointments Resume medications as instructed IMPORTANT: If prescribed a Platelet Aggregation Inhibitor such as, Plavix, Brilinta or Effient: Duration of therapy is minimum one year These medications are often used in combination with Aspirin in prevention of future heart attacks Never discontinue unless consult with your Priest STROKE (CVA) Risk factors for a stroke are: Age, cigarette smoking, diabetes, excessive alcohol consumption, family history, high blood pressure, overweight, physical inactivity, prior stroke, heart attack, diagnosis of carotid artery stenosis or other artery disease. Warning signs: Sudden numbness or weakness of the face, arm or leg; especially on one side of the body, sudden confusion, trouble speaking or understanding, sudden trouble seeing in one or both eyes, sudden trouble walking, dizziness, loss of balance or coordination, sudden severe headache with no cause. Call 911 or go to the Emergency Room. CONGESTIVE HEART FAILURE: If you have been diagnosed with Congestive Heart Failure (CHF) and your sympt oms return, make an appointment with your physician Weigh yourself daily. Notify your physician if you have a weight gain of two or more pounds in one day or five or more pounds in one week. If you experience any difficulty breathing, please call 911 BLEEDING: Although the risk of bleeding is minimal, it can happen. If you have any bleeding from the site, apply firm pressure above the puncture site for 10-15 minutes. If the bleeding does not stop, continue manual pressure and call 911 Contact [facility] ( ) if: You develop a fever greater than 101 degrees Fahrenheit Your site becomes reddened or has any drainage You have an increase in pain or burning at the site or if a large knot forms at the site. If you experience chest pain, shortness of breath, dizziness, or extreme tiredness, stop the activity and rest. Please notify [facility] office if you experience any of these symptoms and they are not relieved by rest please ca ll 911! Referrals: Emeka Ponce MD [Primary Care Provider] - 01/03/19 2:00 pm (pt will be seen by Dr. Stanley) Prescriptions: Albuterol Sulfate [Albuterol Inhaler] 2 puff IH Q4HR PRN #1 [email or web address] PRN Reason: Shortness Of Breath Aspirin Enteric Coated [Aspirin EC] 81 mg PO DAILY #30 tablet. Carvedilol [Coreg] 6.25 mg PO BIDWM #60 tablet Furosemide [Lasix] 20 mg PO DAILY #30 tablet Sacubitril/Valsartan 24/26 mg [Entresto 24 mg-26 mg Tablet] 1 tab PO BID #30 tablet Simvastatin [Zocor] 40 mg PO HS #30 tablet
--- NOTE | 2018-12-27 16:17 | Discharge Summary ---
- NOTES TO OUTPATIENT PROVIDER Notes to Outpatient Provider: Patient was hospitalized here with exertional dyspnea. Was found to have ejection fraction of 20%. Evaluated by cardiology and underwent left heart catheterization which confirmed nonischemic cardiomyopathy. Patient was recommended LifeVest but decided to leave the hospital earlier this morning AGAINST MEDICAL ADVICE before this could be delivered to him. I did send prescriptions for new medications that were started here so that he can continue taking them. I was not able to see the patient today prior to him leaving the hospital. Date of Encounter: 12/27/18 Time of Encounter: 16:14 - Discharge Diagnosis (1) Acute systolic CHF (congestive heart failure), NYHA class 3 Priority: Primary Status: Acute (2) Cardiomyopathy Priority: Secondary Status: Acute Qualifiers: Cardiomyopathy type: alcoholic Qualified Code(s): I42.6 - Alcoholic cardiomyopathy (3) Alcohol abuse Priority: Secondary Status: Chronic (4) Elevated troponin Priority: Secondary Status: Acute (5) NSVT (nonsustained ventricular tachycardia) Priority: Secondary Status: Acute (6) Essential hypertension Priority: Secondary Status: Chronic Hospital course: Mr. Santo is a 53 year old male Patient was hospitalized here with exertional dyspnea. Was found to have ejection fraction of 20%. Evaluated by cardiology and underwent left heart catheterization which confirmed nonischemic cardiomyopathy. Patient was recommended LifeVest but decided to leave the hospital earlier this morning AGAINST MEDICAL ADVICE before this could be delivered to him. I did send prescriptions for new medications that were started here so that he can continue taking them. I was not able to see the patient today prior to him leaving the hospital. - Time Spent with Patient Total time spent providing and/or coordinating discharge services: - Discharge Medications Prescriptions: New Albuterol Sulfate [Albuterol Inhaler] 2 puff IH Q4HR PRN #1 hfa.aer.ad PRN Reason: Shortness Of Breath Aspirin Enteric Coated [Aspirin EC] 81 mg PO DAILY #30 tablet. Carvedilol [Coreg] 6.25 mg PO BIDWM #60 tablet Furosemide [Lasix] 20 mg PO DAILY #30 tablet Simvastatin [Zocor] 40 mg PO HS #30 tablet Losartan Potassium [Cozaar] 50 mg PO DAILY #30 tab Home Medications: Albuterol Sulfate [Albuterol Inhaler] 2 puff IH Q4HR PRN #1 hfa.aer.ad 03/21/19 [Rx] Aspirin Enteric Coated [Aspirin EC] 81 mg PO DAILY #30 tablet. 12/27/18 [Rx] Carvedilol [Coreg] 6.25 mg PO BIDWM #60 tablet 12/27/18 [Rx] Furosemide [Lasix] 20 mg PO DAILY #30 tablet 12/27/18 [Rx] Losartan Potassium [Cozaar] 50 mg PO DAILY #30 tab 12/27/18 [Rx] Simvastatin [Zocor] 40 mg PO HS #30 tablet 12/27/18 [Rx] Allergies/Adverse Reactions: Allergy/AdvReac Type Severity Reaction Status Date / Time No Known Allergies Allergy Verified 12/25/18 19:09 Date of admission: 12/25/18 16:43 Primary care physician: Emeka Ponce MD Consults: 12/25/18 15:35 Consult to Cardiology [CONS] Routine Comment: Consulting Provider: Cardiology Asht[facility] Reason for Consult: shortness of breath, mildly elevated troponin 0.08, new bibasilar pleural effusions and BNP 700, on hep gtt for nstemi v demand, echo pending to eval for WMA and LVEF, please assist in eval Call Completed: No Anticipated date of discharge: 12/27/18 - Constitutional Vitals: Temp Pulse Resp BP Pulse Ox 98.2 F 91 18 112/76 92 12/27/18 06:39 12/27/18 06:39 12/27/18 06:39 12/27/18 06:39 12/27/18 06:39 Exam: . - Patient Status Disposition: Left Against Medical Advice Condition: Good - Discharge Instructions Instructions: Furosemide (By mouth), Simvastatin (By mouth), Carvedilol (By mouth), Pacemaker (DC), Chronic Hypertension (DC) Follow Up With: Emeka Ponce MD [Primary Care Provider] - 01/03/19 2:00 pm (pt will be seen by Dr. Stanley) Additional Instructions: RISK FACTORS: STOP SMOKING: If you smoke, STOP. Smoking or tobacco use significantly increases your risk of heart disease because nicotine causes the arteries to narrow or constrict. It also causes fats to stick to the artery. Your chances of having a heart attack are greatly increased if you continue to smoke. For more information, call the education line for smoking cessation 2-305-WNCLCBJ EAT A LOW FAT/CHOLESTEROL/SODIUM DIET: This diet may help reduce your chances of having a heart attack. LIFTING: With affected extremity: Avoid bending, pushing off and lifting more than 2 pounds for 24 hours The following 48 hours, avoid lifting anything more than 5 pounds Avoid strenuous activity or repetitive motions ACTIVITY: You may walk or climb stairs as tolerated You can resume sexual activity as tolerated In general, you are encouraged to engage in a minimum of 30 minutes or more of moderate intensity physical activity, such as brisk walking, daily or at least 3-4 times weekly BATHING Do not submerge the site into water (bath tub, hot tub, swimming pool, dishes) for 1 week. This can be a source for infection into the blood stream. You may shower after 24 hours SITE CARE: After 24 hours, you may remove the dressing and leave the site open to air. Keep the site clean and dry. Clean gently and pat dry. You can expect bruising and tenderness that gradually resolve within a week or two. Return to work as instructed per your physician Resume driving as instructed per physician Keep all scheduled follow up appointments Resume medications as instructed IMPORTANT: If prescribed a Platelet Aggregation Inhibitor such as, Plavix, Brilinta or Effient: Duration of therapy is minimum one year These medications are often used in combination with Aspirin in prevention of future heart attacks Never discontinue unless consult with your Cardiology Physician STROKE (CVA) Risk factors for a stroke are: Age, cigarette smoking, diabetes, excessive alcohol consumption, family history, high blood pressure, overweight, physical inactivity, prior stroke, heart attack, diagnosis of carotid artery stenosis or other artery disease. Warning signs: Sudden numbness or weakness of the face, arm or leg; especially on one side of the body, sudden confusion, trouble speaking or understanding, sudden trouble seeing in one or both eyes, sudden trouble walking, dizziness, loss of balance or coordination, sudden severe headache with no cause. Call 911 or go to the Emergency Room. CONGESTIVE HEART FAILURE: If you have been diagnosed with Congestive Heart Failure (CHF) and your symptoms return, make an appointment with your physician Weigh yourself daily. Notify your physician if you have a weight gain of two or more pounds in one day or five or more pounds in one week. If you experience any difficulty breathing, please call 911 BLEEDING: Although the risk of bleeding is minimal, it can happen. If you have any bleeding from the site, apply firm pressure above the puncture site for 10-15 minutes. If the bleeding does not stop, continue manual pressure and call 911 Contact [facility] ( ) if: You develop a fever greater than 101 degrees Fahrenheit Your site becomes reddened or has any drainage You have an increase in pain or burning at the site or if a large knot forms at the site. If you experience chest pain, shortness of breath, dizziness, or extreme tiredness, stop the activity and rest. Please notify [facility] office if you experience any of these symptoms and they are not relieved by rest please call 911!
--- NOTE | 2018-12-27 20:39 | Electrocardiograph Report ---
[place] [id number] Test Date: 2018-12-26 Pat Name: Boyd Santo Department: 103 Room: [facility] Gender: M Teller Head: : 1965 Requested By: Marcos Mckenzie Order Number: [id number] Reading MD: Essence Petit Measurements Intervals [place] Rate: 93 P: 26 WA: 155 QRS: -2 QRSD: 94 T: 121 QT: 367 QTc: 418 Interpretive Statements SINUS RHYTHM POSSIBLE LEFT ATRIAL ENLARGEMENT [-0.1mV P WAVE IN V1/V2] MODERATE T-WAVE ABNORMALITY, CONSIDER LATERAL ISCHEMIA [-0.1+ mV T WAVE IN I/aVL/V5/V6] Electronically Signed On 12-27-2018 20:37:40 EDT by Essence Petit
== END 2018-12-27 09:46 | disposition left against medical advice (07) | DRG 286 ==
LOC: 2SOUTHHOLD 02:18 → EMEROOARM 02:18 → 2SOUTHHOLD 08:36 → SUATTDRO 16:43
PROVIDERS: ADMIT Internal Medicine; ATTEND Internal Medicine